=== PATIENT | female | born 1950 | race African-American/Black ===

== ENCOUNTER 2019-01-10 19:46 | Inpatient (IN) | payer MEDICARE, OTHER ==
[~2019-01-10] VITALS: Ht 160 cm; Wt 63.5 kg
[2019-01-10] MEDS ORDERED: SODIUM CHLORIDE 0.9% 1,000 ML IV ONE ×2 (20:08→23:15)
[2019-01-10 20:37] LABS: BASOPHILS % 0.3 % (0.0-2.0); EOSINOPHILS % 1.7 % (0.0-5.0); HEMATOCRIT. 35.6 % (36.0-48.0); HEMOGLOBIN. 11.7 g/dL (12.0-16.0); LYMPHOCYTES % 38.7 % (20.0-50.0); MEAN CORPUSCULAR HEMOGLOBIN 31.7 pg (28.0-32.0); MEAN CORPUSCULAR VOLUME 96.6 fL (81.0-99.0); MEAN PLATELET VOLUME 7.8 fl (7.4-10.4); NEUTROPHILS % 53.3 % (40.0-76.0); PLATELET 129 x1000/uL (130-400); RED BLOOD CELL COUNT 3.68 mill/uL (4.2-5.4); RED CELL DISTRIBUTION WIDTH 14.4 % (11.6-14.6)
[2019-01-10 20:39] LABS: CHLORIDE 114 mEq/L (98-107)
[2019-01-10 22:01] LABS: CLARITY URINE CLEAR (CLEAR); COLOR URINE YELLOW (YELLOW); KETONES URINE NEGATIVE (NEGATIVE); LEUKOCYTE ESTERASE URINE NEGATIVE (NEGATIVE); NITRITE URINE NEGATIVE (NEGATIVE); OCCULT BLOOD URINE NEGATIVE (NEGATIVE); PH URINE 5.5 (4.5-8.0); PROTEIN URINE NEGATIVE (NEGATIVE); SPECIFIC GRAVITY URINE 1.015 (1.005-1.030); UROBILINOGEN URINE 0.2 E.U./dL (0.2-1.0)
[2019-01-10] MEDS ORDERED: GUAIFENESIN 200MG/10ML SUGAR FREE UDC PO PRN (23:30)
[2019-01-10] MEDS ORDERED: LORAZEPAM 2MG/ML CPJ IV PRN (23:30)
[2019-01-10] MEDS ORDERED: HYDROMORPHONE HCL/PF 2MG/ML CPJ IV PRN (23:30)
[2019-01-10] MEDS ORDERED: HYDRALAZINE 20MG/ML VIAL IV PRN (23:30)
[2019-01-10] MEDS ORDERED: DOCUSATE SODIUM 100MG CAPSULE PO PRN (23:30)
[2019-01-10] MEDS ORDERED: CLONIDINE 0.1MG TABLET PO PRN (23:30)
[2019-01-10] MEDS ORDERED: MAGNESIUM/ALUMINUM HYDROXIDE/SIMETHICONE 30ML UDC PO PRN (23:30)
[2019-01-10] MEDS ORDERED: ONDANSETRON HCL 4MG/2ML INJ IV PRN (23:30)
[2019-01-10] MEDS ORDERED: DIPHENHYDRAMINE 50MG/ML VIAL IV PRN (23:30)
[2019-01-10] MEDS ORDERED: NA PHOS,M-B/NA PHOS,DI-BA ENEMA 118ML PR PRN (23:30)
[2019-01-10] MEDS ORDERED: IPRATROPIUM/ALBUTEROL 0.5-3(2.5)MG/3ML NEB INH PRN (23:30)
[2019-01-11] VITALS (7 sets, daily range): BP systolic 111–139; BP diastolic 52–87
[2019-01-11] MEDS ORDERED: OMEP20CA10 MT (03:05)
[2019-01-11] MEDS ORDERED: DIAZ10TA MT (03:05)
[2019-01-11] MEDS ORDERED: AMLO10TA80 MT (03:05)
[2019-01-11] MEDS ORDERED: LIP40 MT (03:05)
[2019-01-11] MEDS ORDERED: BACL-141 MT (03:05)
[2019-01-11] MEDS ORDERED: ALBU6.7H INH (03:05)
[2019-01-11] MEDS ORDERED: TRAM50TA MT (03:05)
[2019-01-11] MEDS ORDERED: DORZ10DR9 EACHEYE (03:05)
[2019-01-11] MEDS ORDERED: FURO-152 MT (03:05)
[2019-01-11] MEDS: SODIUM CHLORIDE 0.45% 1,000 ML IV SCH ×2 (05:03→21:34)
[2019-01-11] MEDS: SODIUM CHLORIDE 0.9% INJ 3ML FLUSH IVF SCH ×2 (05:06→14:20)
[2019-01-11] MEDS: HYDROCODONE/ACETAMINOPHEN 10/325MG TABLET PO PRN ×2 (05:15→11:41)
[2019-01-11 06:47] LABS: CHLORIDE 117 mEq/L (98-107)
[2019-01-11 06:58] LABS: BASOPHILS % 0.5 % (0.0-2.0); EOSINOPHILS % 1.5 % (0.0-5.0); HEMATOCRIT. 29.6 % (36.0-48.0); HEMOGLOBIN. 9.9 g/dL (12.0-16.0); LYMPHOCYTES % 37.1 % (20.0-50.0); MEAN CORPUSCULAR HEMOGLOBIN 32.2 pg (28.0-32.0); MONOCYTES % 3.4 % (2.0-8.0); NEUTROPHILS % 57.5 % (40.0-76.0); PLATELET 116 x1000/uL (130-400); RED BLOOD CELL COUNT 3.08 mill/uL (4.2-5.4); RED CELL DISTRIBUTION WIDTH 14.3 % (11.6-14.6)
[2019-01-11 07:14] LABS: CREATINE KINASE 58 IU/L (26-192); T4 FREE 1.05 ng/dL (0.76-1.46)
[2019-01-11 07:16] LABS: CREATINE KINASE MB FRACTION 5.5 ng/mL (0.5-3.6)
[2019-01-11] MEDS: ASPIRIN 81MG EC TABLET PO SCH (09:56)
[2019-01-11] MEDS: ENOXAPARIN 30MG/0.3ML SYR SUBCUT SCH (09:57)
[2019-01-11] MEDS ORDERED: REGADENOSON 0.4 MG/5 ML IV ONE (10:45)
[2019-01-11 15:46] LABS: CREATINE KINASE MB FRACTION 6.1 ng/mL (0.5-3.6)
[2019-01-11] MEDS ORDERED: LEVOFLOXACIN 500MG PREMIX 100 ML IV SCH (18:00)
[2019-01-12] VITALS (7 sets, daily range): BP systolic 122–155; BP diastolic 67–87
[2019-01-12 07:14] LABS: BASOPHILS % 0.3 % (0.0-2.0); EOSINOPHILS % 1.7 % (0.0-5.0); HEMATOCRIT. 31.4 % (36.0-48.0); HEMOGLOBIN. 10.5 g/dL (12.0-16.0); LYMPHOCYTES % 54.7 % (20.0-50.0); MEAN CORPUSCULAR HEMOGLOBIN 31.9 pg (28.0-32.0); MEAN CORPUSCULAR VOLUME 95.5 fL (81.0-99.0); MEAN PLATELET VOLUME 7.4 fl (7.4-10.4); MONOCYTES % 3.7 % (2.0-8.0); NEUTROPHILS % 39.6 % (40.0-76.0); PLATELET 121 x1000/uL (130-400); RED BLOOD CELL COUNT 3.28 mill/uL (4.2-5.4); RED CELL DISTRIBUTION WIDTH 14.3 % (11.6-14.6)
[2019-01-12] MEDS ORDERED: REGADENOSON 0.4 MG/5 ML IV ONE (08:52)
[2019-01-12] MEDS: ENOXAPARIN 30MG/0.3ML SYR SUBCUT SCH (10:31)
[2019-01-12] MEDS: ASPIRIN 81MG EC TABLET PO SCH (10:31)
[2019-01-12] MEDS ORDERED: DEXTROSE 5% WATER 1,000 ML IV SCH (12:17)
[2019-01-12] MEDS: LEVOFLOXACIN 250MG PREMIX 50 ML IV SCH (13:43)
[2019-01-12] MEDS: SODIUM CHLORIDE 0.9% INJ 3ML FLUSH IVF SCH ×2 (13:46→20:44)
[2019-01-12 14:30] LABS: CREATINE KINASE 53 IU/L (26-192)
[2019-01-12] MEDS ORDERED: VANCOMYCIN 1 G PREMIX 200 ML IV SCH (18:00)
[2019-01-12] MEDS: HYDROCODONE/ACETAMINOPHEN 10/325MG TABLET PO PRN (19:19)
[2019-01-12] MEDS: DEXTROSE 5% WATER 1,000 ML IV SCH (20:45)
[2019-01-13] MEDS: HYDROCODONE/ACETAMINOPHEN 10/325MG TABLET PO PRN ×2 (00:04→13:56)
[2019-01-13 03:45] VITALS: BP 117/65
[2019-01-13 06:16] LABS: HEMATOCRIT. 28.9 % (36.0-48.0); HEMOGLOBIN. 9.7 g/dL (12.0-16.0); MEAN CORPUSCULAR HEMOGLOBIN 31.9 pg (28.0-32.0); MEAN CORPUSCULAR VOLUME 94.7 fL (81.0-99.0); MEAN PLATELET VOLUME 7.4 fl (7.4-10.4); PLATELET 110 x1000/uL (130-400); RED BLOOD CELL COUNT 3.05 mill/uL (4.2-5.4)
[2019-01-13] MEDS: DEXTROSE 5% WATER 1,000 ML IV SCH (06:53)
[2019-01-13] MEDS: SODIUM CHLORIDE 0.9% INJ 3ML FLUSH IVF SCH ×2 (06:53→13:41)
[2019-01-13 08:08] VITALS: BP 126/72
[2019-01-13] MEDS: ASPIRIN 81MG EC TABLET PO SCH (08:42)
[2019-01-13] MEDS: ENOXAPARIN 30MG/0.3ML SYR SUBCUT SCH (08:43)
[2019-01-13 11:58] VITALS: BP 134/75
[2019-01-13] MEDS: LEVOFLOXACIN 250MG PREMIX 50 ML IV SCH (13:40)
[2019-01-13 15:07] VITALS: BP 130/85
[2019-01-13 15:27] LABS: PLATELET ESTIMATE DECREASED
[2019-01-13 15:37] VITALS: BP 130/85
[2019-01-13] MEDS ORDERED: VANCOMYCIN 500 MG PREMIX 100 ML IV SCH (18:00)
[2019-01-13] MEDS ORDERED: VANCOMYCIN 750 MG PREMIX 150 ML IV SCH (19:00)
== END 2019-01-13 17:20 | disposition home or self-care (01) | DRG 73 ==
LOC: ER 19:46 → 5WST 23:13 → EDBEDREQ 23:19 → EDBEDREQTM 23:19 → ENRESERV 01-11 00:21
PROVIDERS: ADMIT Internal Medicine; ATTEND Internal Medicine
DX: G90.8 Other disorders of autonomic nervous system (principal); N17.0 Acute kidney failure with tubular necrosis; E43 Unspecified severe protein-calorie malnutrition; E87.0 Hyperosmolality and hypernatremia; E78.5 Hyperlipidemia, unspecified; D72.819 Decreased white blood cell count, unspecified; I12.9 Hypertensive chronic kidney disease with stage 1 through stage 4 chronic kidney disease, or unspecified chronic kidney disease; N18.9 Chronic kidney disease, unspecified; J45.909 Unspecified asthma, uncomplicated; I25.2 Old myocardial infarction; Z88.0 Allergy status to penicillin
CPT/HCPCS: 36415; 71045; 76770; 78452; 80048; 80061; 82550; 82553; 82962; 83036; 83880; 84439; 84443; 84484; 85379; 93005; 93017; 93306; 93970; 96360; 96361; 99285; A9500; J1650; J1956; J2785; J3370; J7030; J7070

== ENCOUNTER 2024-02-17 14:27 | Inpatient (IN) | payer MEDICARE, MEDICAID ==
[~2024-02-17] VITALS: Ht 165.1 cm; Wt 52.2 kg
[~2024-02-17 14:27] MED LIST: ALBU6.7H15 INH; AMLO10TA80 MT; BACL-141 MT; DIAZ-570 MT; DORZ10DR9 EACHEYE; FURO-152 MT; LIP40 MT; OMEP20CA14 MT; TRAM50TA MT
[2024-02-17 15:48] LABS: BASOPHILS % 0.3 % (0.0-2.0); EOSINOPHILS % 0.1 % (0.0-5.0); HEMATOCRIT. 26.9 % (36.0-48.0); HEMOGLOBIN. 8.7 g/dL (12.0-16.0); LYMPHOCYTES % 16.6 % (20.0-50.0); MEAN CORPUSCULAR HEMOGLOBIN 27.4 pg (28.0-32.0); MEAN CORPUSCULAR HGB CONC 32.5 g/dL (31.0-37.0); MEAN CORPUSCULAR VOLUME 84.2 fL (81.0-99.0); MONOCYTES % 5.9 % (2.0-8.0); NEUTROPHILS % 77.1 % (40.0-76.0); PLATELET 188 x1000/uL (130-400); RED BLOOD CELL COUNT 3.19 mill/uL (4.2-5.4); RED CELL DISTRIBUTION WIDTH 17.3 % (11.6-14.6); WHITE BLOOD COUNT 7.8 x1000/uL (4.5-11.0)
[2024-02-17 15:58] LABS: CHLORIDE 107 mEq/L (98-107); POTASSIUM 5.3 mEq/L (3.5-5.1); SODIUM 140 mEq/L (136-145)
[2024-02-17 15:59] LABS: CALCIUM 8.8 mg/dL (8.7-10.4); CARBON DIOXIDE 22 mEq/L (21-32)
[2024-02-17 16:04] LABS: GLUCOSE 78 mg/dL (70-105); UREA NITROGEN BLOOD 71 mg/dL (9-23)
[2024-02-17 16:06] LABS: ALANINE AMINOTRANSFERASE 448 IU/L (10-49); ALBUMIN 3.8 g/dL (3.2-4.8); ASPARTATE AMINOTRANSFERASE 600 IU/L (<34); BILIRUBIN TOTAL 0.2 mg/dL (0.1-1.0); CREATININE 9.1 mg/dL (0.6-1.0); PROTEIN TOTAL 6.8 g/dL (6.0-8.3)
[2024-02-17 16:07] LABS: TROPONIN I HIGH SENSITIVITY 88 ng/L (3.0-34)
[2024-02-17] MEDS: ASPIRIN 325MG EC TABLET PO ONE (16:58)
[2024-02-17] MEDS: ENOXAPARIN 100MG/ML SYR SUBCUT NR (17:38)
[2024-02-17] MEDS ORDERED: CLONIDINE 0.1MG TABLET PO PRN (17:45)
[2024-02-17] MEDS ORDERED: ONDANSETRON HCL 4MG/2ML INJ IV PRN (17:45)
[2024-02-17] MEDS: IPRATROPIUM/ALBUTEROL 0.5-3(2.5)MG/3ML NEB HHN PRN (18:15)
[2024-02-17 18:16] VITALS: PULSE 99; RESP 40
[2024-02-17] MEDS: CALCIUM GLUCONATE 1GM PREMIX 50 ML IV NR (18:34)
[2024-02-17 18:35] VITALS: RESP 33
[2024-02-17 19:05] LABS: HEPATITIS B SURFACE ANTIGEN NEGATIVE (Negative)
[2024-02-17 19:26] LABS: HEPATITIS A AB IGM NEGATIVE (Negative); HEPATITIS B CORE AB IGM NEGATIVE (Negative)
[2024-02-17 19:43] LABS: HEPATITIS C AB REACTIVE (Pos) (Negative)
[2024-02-17 20:46] VITALS: RESP 27
[2024-02-17] MEDS ORDERED: EPOETIN ALFA-EPBX 4,000 UNIT/ML VIAL SUBCUT SCH (21:00)
[2024-02-17] MEDS ORDERED: DOXYCYCLINE 100MG/100ML 100 ML IV SCH (21:00)
[2024-02-17] MEDS ORDERED: NALOXONE HCL 0.4MG/ML VIAL IV PRN (21:15)
[2024-02-17 22:00] LABS: BG BASE EXCESS -6.2 mmol/L (-2.0-2.0); BG CARBOXYHEMOGLOBIN 0.1 % (0.5-1.5); BG DEOXYHEMOGLOBIN 5.4 % (0.0-5.0); BG FRACTION INSPIRED OXYGEN 100; BG HCO3 ACT 19.3 mmol/L (22.0-26.0); BG METHEMOGLOBIN 0.1 % (0.0-1.5); BG OXYGEN SATURATION 94.6 % (92.0-98.5); BG OXYHEMOGLOBIN 94.4 % (94.0-97.0); BG PCO2 38.5 mmHg (35.0-45.0); BG PH 7.319 (7.350-7.450); BG PO2 91.1 mmHg (75.0-100.0); BG SAMPLE SITE RIGHT RADIAL; BG TOTAL HEMOGLOBIN 9.1 g/dL (12.0-18.0); BG VENT MODE MASK - BIPAP
[2024-02-17] MEDS: FUROSEMIDE 40MG/4ML VIAL IVP NR (22:41)
[2024-02-17] MEDS: EPOETIN ALFA 4000UNITS/ML VIAL SUBCUT SCH (22:42)
[2024-02-18] VITALS (28 sets, daily range): BP systolic 114–144; BP diastolic 60–103; PULSE 83–102; RESP 19–50; TEMP 97.5–98
[2024-02-18 01:50] LABS: CREATINE KINASE MB FRACTION 5.5 ng/mL (0.5-3.6)
[2024-02-18 05:29] LABS: BASOPHILS % 0.3 % (0.0-2.0); EOSINOPHILS % 0.2 % (0.0-5.0); HEMATOCRIT. 27.3 % (36.0-48.0); HEMOGLOBIN. 8.7 g/dL (12.0-16.0); LYMPHOCYTES % 16.2 % (20.0-50.0); MEAN CORPUSCULAR HEMOGLOBIN 27.2 pg (28.0-32.0); MEAN CORPUSCULAR VOLUME 84.9 fL (81.0-99.0); MEAN PLATELET VOLUME 8.5 fl (7.4-10.4); MONOCYTES % 6.5 % (2.0-8.0); NEUTROPHILS % 76.8 % (40.0-76.0); PLATELET 172 x1000/uL (130-400); RED BLOOD CELL COUNT 3.21 mill/uL (4.2-5.4); RED CELL DISTRIBUTION WIDTH 17.5 % (11.6-14.6); WHITE BLOOD COUNT 8.9 x1000/uL (4.5-11.0)
[2024-02-18 05:52] LABS: POTASSIUM 5.8 mEq/L (3.5-5.1)
[2024-02-18 05:53] LABS: CALCIUM 8.2 mg/dL (8.7-10.4)
[2024-02-18 05:56] LABS: CREATINE KINASE MB FRACTION 4.2 ng/mL (0.5-3.6)
[2024-02-18 06:17] LABS: CREATININE 9.7 mg/dL (0.6-1.0)
[2024-02-18] MEDS: ASPIRIN 81MG EC TABLET PO SCH (08:41)
[2024-02-18] MEDS: ENOXAPARIN 30MG/0.3ML SYR SUBCUT SCH (08:42)
[2024-02-18] MEDS ORDERED: ACETAMINOPHEN 325MG TABLET PO PRN (10:30)
[2024-02-18] MEDS ORDERED: DOCUSATE SODIUM 100MG CAPSULE PO PRN (10:30)
[2024-02-18] MEDS: SODIUM POLYSTYRENE SULFONATE 15 G/60 ML BOT PO NR ×2 (11:22→17:00)
[2024-02-18] MEDS: DOXYCYCLINE 100MG/100ML 100 ML IV SCH (12:00)
[2024-02-18] MEDS: NITROGLYCERIN OINT 1GM/INCH UDPKT TD SCH (14:27)
[2024-02-18] MEDS: HYDRALAZINE HCL 25MG TABLET PO SCH (14:27)
[2024-02-18] MEDS: IPRATROPIUM/ALBUTEROL 0.5-3(2.5)MG/3ML NEB HHN SCH (16:30)
[2024-02-18 17:19] LABS: D-DIMER 3.64 mg/L FEU (<0.50); INR 1.1; PROTHROMBIN TIME 12.6 sec (9.6-11.0)
[2024-02-18 17:33] LABS: CREATINE KINASE MB FRACTION 3.6 ng/mL (0.5-3.6)
[2024-02-19] VITALS (29 sets, daily range): BP systolic 118–154; BP diastolic 20–94; PULSE 94–107; RESP 17–39; TEMP 97–98.6
[2024-02-19] LABS: CREATINE KINASE MB FRACTION 2.9 ng/mL (0.5-3.6)
[2024-02-19] MEDS: HYDROCODONE/ACETAMINOPHEN 5/325MG TABLET PO PRN (03:19)
[2024-02-19 07:14] LABS: BASOPHILS % 0.2 % (0.0-2.0); EOSINOPHILS % 0.1 % (0.0-5.0); HEMATOCRIT. 25.5 % (36.0-48.0); HEMOGLOBIN. 8.2 g/dL (12.0-16.0); LYMPHOCYTES % 8.1 % (20.0-50.0); MEAN CORPUSCULAR HEMOGLOBIN 26.4 pg (28.0-32.0); MEAN CORPUSCULAR HGB CONC 32.1 g/dL (31.0-37.0); MEAN CORPUSCULAR VOLUME 82.2 fL (81.0-99.0); MEAN PLATELET VOLUME 8.3 fl (7.4-10.4); MONOCYTES % 5.8 % (2.0-8.0); NEUTROPHILS % 85.8 % (40.0-76.0); PLATELET 177 x1000/uL (130-400); RED BLOOD CELL COUNT 3.11 mill/uL (4.2-5.4); RED CELL DISTRIBUTION WIDTH 17.2 % (11.6-14.6); WHITE BLOOD COUNT 11.7 x1000/uL (4.5-11.0)
[2024-02-19 07:31] LABS: CHLORIDE 105 mEq/L (98-107); POTASSIUM 3.6 mEq/L (3.5-5.1); SODIUM 141 mEq/L (136-145)
[2024-02-19 07:33] LABS: CARBON DIOXIDE 22 mEq/L (21-32)
[2024-02-19 07:38] LABS: GLUCOSE 103 mg/dL (70-105)
[2024-02-19 07:39] LABS: UREA NITROGEN BLOOD 89 mg/dL (9-23)
[2024-02-19 07:40] LABS: ALANINE AMINOTRANSFERASE 424 IU/L (10-49); ALBUMIN 3.6 g/dL (3.2-4.8); ASPARTATE AMINOTRANSFERASE 288 IU/L (<34)
[2024-02-19 07:41] LABS: BILIRUBIN TOTAL 0.2 mg/dL (0.1-1.0); PROTEIN TOTAL 6.5 g/dL (6.0-8.3)
[2024-02-19 07:45] LABS: BILIRUBIN DIRECT < 0.1 mg/dL (<=3.0); CREATININE 9.7 mg/dL (0.6-1.0)
[2024-02-19] MEDS: FUROSEMIDE 40MG/4ML VIAL IVP SCH (09:00)
[2024-02-19] MEDS: PANTOPRAZOLE SODIUM 40 MG/VIAL IV SCH (09:00)
[2024-02-19] MEDS ORDERED: LIDOCAINE HCL 1% 10 MG/ML 10ML VIAL ONE (10:18)
[2024-02-19] MEDS ORDERED: HEPARIN 1000 UNITS/ML 10ML ONE (10:18)
[2024-02-19 17:26] LABS: BG BASE EXCESS 0.7 mmol/L (-2.0-2.0); BG CARBOXYHEMOGLOBIN 0.2 % (0.5-1.5); BG DEOXYHEMOGLOBIN 1.3 % (0.0-5.0); BG HCO3 ACT 24.7 mmol/L (22.0-26.0); BG METHEMOGLOBIN 0.3 % (0.0-1.5); BG OXYGEN SATURATION 98.7 % (92.0-98.5); BG OXYHEMOGLOBIN 98.2 % (94.0-97.0); BG PCO2 37.2 mmHg (35.0-45.0); BG PO2 148.3 mmHg (75.0-100.0); BG TOTAL HEMOGLOBIN 10.2 g/dL (12.0-18.0)
[2024-02-19 17:28] LABS: BG FRACTION INSPIRED OXYGEN 60; BG SAMPLE SITE RIGHT RADIAL; BG TOTAL RESPIRATORY RATE 23 b/min; BG VENT MODE MASK - BIPAP
[2024-02-19 22:34] LABS: CLARITY URINE CLEAR (CLEAR); COLOR URINE YELLOW (YELLOW); GLUCOSE URINE NEGATIVE (NEGATIVE); KETONES URINE NEGATIVE (NEGATIVE); LEUKOCYTE ESTERASE URINE TRACE (NEGATIVE); NITRITE URINE NEGATIVE (NEGATIVE); OCCULT BLOOD URINE NEGATIVE (NEGATIVE); PH URINE 5.5 (4.5-8.0); PROTEIN URINE 3+ (NEGATIVE); SPECIFIC GRAVITY URINE 1.016 (1.005-1.030); UROBILINOGEN URINE 0.2 E.U./dL (0.2-1.0)
[2024-02-19 22:42] LABS: *AMPHETAMINES SCREEN URINE NEGATIVE (NEGATIVE); *BARBITURATES SCREEN URINE NEGATIVE (NEGATIVE); *BENZODIAZEPINES SCREEN URINE PRESUMPTIVE POSITIVE (NEGATIVE); *COCAINE SCREEN URINE NEGATIVE (NEGATIVE); CANNABINOID URINE SCREEN NEGATIVE (NEGATIVE); ECSTASY MDMA SCREEN URINE NEGATIVE (NEGATIVE); METHADONE URINE SCREEN NEGATIVE (NEGATIVE); OPIATES URINE SCREEN PRESUMPTIVE POSITIVE (NEGATIVE); PHENCYCLIDINE URINE SCREEN NEGATIVE (NEGATIVE)
[2024-02-19 23:00] LABS: RBC URINE NONE SEEN /hpf (0-2); SQUAMOUS EPITHELIAL CELL URINE 1+ /lpf (RARE/1+); WBC URINE 0-2 /hpf (0-2)
[2024-02-19 23:02] LABS: BACTERIA URINE TRACE
[2024-02-20] VITALS (24 sets, daily range): BP systolic 106–140; BP diastolic 52–75; PULSE 75–98; RESP 13–25; TEMP 97.1–99.4; O2SAT 99
[2024-02-20 07:23] LABS: BASOPHILS % 0.2 % (0.0-2.0); EOSINOPHILS % 1.3 % (0.0-5.0); HEMATOCRIT. 22.8 % (36.0-48.0); HEMOGLOBIN. 7.4 g/dL (12.0-16.0); MEAN CORPUSCULAR HEMOGLOBIN 26.5 pg (28.0-32.0); MEAN CORPUSCULAR HGB CONC 32.2 g/dL (31.0-37.0); MEAN CORPUSCULAR VOLUME 82.1 fL (81.0-99.0); MEAN PLATELET VOLUME 8.1 fl (7.4-10.4); MONOCYTES % 8.2 % (2.0-8.0); NEUTROPHILS % 73.3 % (40.0-76.0); PLATELET 192 x1000/uL (130-400); RED BLOOD CELL COUNT 2.78 mill/uL (4.2-5.4); RED CELL DISTRIBUTION WIDTH 17.4 % (11.6-14.6); WHITE BLOOD COUNT 7.2 x1000/uL (4.5-11.0)
[2024-02-20 07:46] LABS: CALCIUM 8.2 mg/dL (8.7-10.4)
[2024-02-20 07:54] LABS: CREATININE 7.3 mg/dL (0.6-1.0)
[2024-02-20] MEDS ORDERED: LEVOFLOXACIN 500MG PREMIX 100 ML IV SCH (09:00)
[2024-02-20 15:39] LABS: BG CARBOXYHEMOGLOBIN 0.7 % (0.5-1.5); BG DEOXYHEMOGLOBIN 9.8 % (0.0-5.0); BG FRACTION INSPIRED OXYGEN 21; BG HCO3 ACT 24.6 mmol/L (22.0-26.0); BG METHEMOGLOBIN 0.5 % (0.0-1.5); BG OXYGEN SATURATION 90.1 % (92.0-98.5); BG PCO2 39.8 mmHg (35.0-45.0); BG PH 7.409 (7.350-7.450); BG PO2 63.8 mmHg (75.0-100.0); BG SAMPLE SITE LEFT BRACHIAL; BG TOTAL HEMOGLOBIN 8.3 g/dL (12.0-18.0); BG VENT MODE ROOM AIR
[2024-02-20] MEDS: ACETAMINOPHEN 325MG TABLET PO PRN (22:14)
[2024-02-21] VITALS (29 sets, daily range): BP systolic 112–138; BP diastolic 54–79; PULSE 82–102; RESP 15–28; TEMP 97.1–98.4; O2SAT 99–100
[2024-02-21] MEDS ORDERED: ALTEPLASE 2MG/VIAL ITC NR (07:00)
[2024-02-21] MEDS ORDERED: LIDOCAINE HCL 1% 10 MG/ML 10ML VIAL ONE (07:48)
[2024-02-21] MEDS ORDERED: IOHEXOL-300 100 ML BOTTLE ONE (07:49)
[2024-02-21] MEDS ORDERED: HEPARIN 1000 UNITS/ML 10ML ONE (07:49)
[2024-02-21] MEDS: FENTANYL CITRATE/PF 50MCG/ML 2ML VIAL IV NR (09:10)
[2024-02-21] MEDS ORDERED: FENTANYL CITRATE/PF 50MCG/ML 2ML VIAL ONE (09:10)
[2024-02-21 17:19] LABS: HEMATOCRIT. 24.5 % (36.0-48.0); HEMOGLOBIN. 8.1 g/dL (12.0-16.0); MEAN CORPUSCULAR HEMOGLOBIN 27.1 pg (28.0-32.0); MEAN CORPUSCULAR VOLUME 82.3 fL (81.0-99.0); MEAN PLATELET VOLUME 7.7 fl (7.4-10.4); PLATELET 222 x1000/uL (130-400); RED BLOOD CELL COUNT 2.98 mill/uL (4.2-5.4); WHITE BLOOD COUNT 5.4 x1000/uL (4.5-11.0)
[2024-02-21 17:31] LABS: DIFFERENTIAL COMMENT 1
[2024-02-21 21:58] LABS: ANISOCYTOSIS 1+; PLATELET ESTIMATE NORMAL
[2024-02-22] VITALS (21 sets, daily range): BP systolic 113–147; BP diastolic 68–86; PULSE 86–104; RESP 13–29; TEMP 97.1–98.8; O2SAT 96–99
[2024-02-22 11:01] LABS: HEMATOCRIT. 21.8 % (36.0-48.0); HEMOGLOBIN. 7.1 g/dL (12.0-16.0); MEAN CORPUSCULAR HEMOGLOBIN 26.7 pg (28.0-32.0); MEAN CORPUSCULAR HGB CONC 32.7 g/dL (31.0-37.0); MEAN CORPUSCULAR VOLUME 81.8 fL (81.0-99.0); PLATELET 214 x1000/uL (130-400); RED BLOOD CELL COUNT 2.67 mill/uL (4.2-5.4); RED CELL DISTRIBUTION WIDTH 17.2 % (11.6-14.6); WHITE BLOOD COUNT 4.4 x1000/uL (4.5-11.0)
[2024-02-22 11:10] LABS: POTASSIUM 3.2 mEq/L (3.5-5.1)
[2024-02-22 11:11] LABS: CALCIUM 8.5 mg/dL (8.7-10.4)
[2024-02-22 11:23] LABS: CREATININE 7.2 mg/dL (0.6-1.0)
[2024-02-22 11:34] LABS: DIFFERENTIAL COMMENT 1
[2024-02-22] MEDS: POTASSIUM CHLORIDE 20MEQ TABLET SR PO NR (12:58)
[2024-02-22 16:57] LABS: PLATELET ESTIMATE NORMAL
[2024-02-23] VITALS (9 sets, daily range): BP systolic 126–140; BP diastolic 59–72; PULSE 76–99; RESP 15–20; TEMP 97–97.5; O2SAT 96–100
[2024-02-23 05:11] LABS: POTASSIUM 3.8 mEq/L (3.5-5.1)
[2024-02-23 05:12] LABS: CALCIUM 8.8 mg/dL (8.7-10.4)
[2024-02-23 05:18] LABS: CREATININE 5.4 mg/dL (0.6-1.0)
[2024-02-23 05:31] LABS: HEMATOCRIT. 27.2 % (36.0-48.0); HEMOGLOBIN. 8.8 g/dL (12.0-16.0); MEAN CORPUSCULAR HEMOGLOBIN 27.4 pg (28.0-32.0); MEAN CORPUSCULAR HGB CONC 32.4 g/dL (31.0-37.0); MEAN CORPUSCULAR VOLUME 84.4 fL (81.0-99.0); MEAN PLATELET VOLUME 7.4 fl (7.4-10.4); PLATELET 205 x1000/uL (130-400); RED BLOOD CELL COUNT 3.22 mill/uL (4.2-5.4); RED CELL DISTRIBUTION WIDTH 16.4 % (11.6-14.6)
[2024-02-23 06:38] LABS: DIFFERENTIAL COMMENT 1
[2024-02-23 22:46] LABS: PLATELET ESTIMATE NORMAL
== END 2024-02-23 16:10 | disposition home health service (06) | DRG 252 ==
LOC: ER 14:56 → EDBEDREQTM 16:19 → EDBEDREQ 16:19 → 5EST 18:47 → EDBEDREQTM 18:52 → EDBEDREQSVC 18:52 → 7EST 02-22 18:02
PROVIDERS: ADMIT Internal Medicine; ATTEND Internal Medicine
PROC: 5A1D70Z Performance of Urinary Filtration, Intermittent, Less than 6 Hours Per Day (ICD-10-PCS; 2024-02-18)
PROC: 5A09357 Assistance with Respiratory Ventilation, Less than 24 Consecutive Hours, Continuous Positive Airway Pressure (ICD-10-PCS; 2024-02-18)
PROC: 5A1D70Z Performance of Urinary Filtration, Intermittent, Less than 6 Hours Per Day (ICD-10-PCS; 2024-02-19)
PROC: 5A09357 Assistance with Respiratory Ventilation, Less than 24 Consecutive Hours, Continuous Positive Airway Pressure (ICD-10-PCS; 2024-02-19)
PROC: 05HY33Z Insertion of Infusion Device into Upper Vein, Percutaneous Approach (ICD-10-PCS; 2024-02-19)
PROC: B54MZZA Ultrasonography of Right Upper Extremity Veins, Guidance (ICD-10-PCS; 2024-02-19)
PROC: 5A1D70Z Performance of Urinary Filtration, Intermittent, Less than 6 Hours Per Day (ICD-10-PCS; 2024-02-20)
PROC: 5A09357 Assistance with Respiratory Ventilation, Less than 24 Consecutive Hours, Continuous Positive Airway Pressure (ICD-10-PCS; 2024-02-20)
PROC: 03783ZZ Dilation of Left Brachial Artery, Percutaneous Approach (ICD-10-PCS; principal; 2024-02-21)
PROC: B31J1ZZ Fluoroscopy of Left Upper Extremity Arteries using Low Osmolar Contrast (ICD-10-PCS; 2024-02-21)
PROC: B5181ZZ Fluoroscopy of Superior Vena Cava using Low Osmolar Contrast (ICD-10-PCS; 2024-02-21)
PROC: 3E03317 Introduction of Other Thrombolytic into Peripheral Vein, Percutaneous Approach (ICD-10-PCS; 2024-02-21)
PROC: 5A1D70Z Performance of Urinary Filtration, Intermittent, Less than 6 Hours Per Day (ICD-10-PCS; 2024-02-22)
DX: I13.2 Hypertensive heart and chronic kidney disease with heart failure and with stage 5 chronic kidney disease, or end stage renal disease (principal); J96.01 Acute respiratory failure with hypoxia; N18.6 End stage renal disease; J84.9 Interstitial pulmonary disease, unspecified; I50.9 Heart failure, unspecified; E87.5 Hyperkalemia; Z20.822 Contact with and (suspected) exposure to COVID-19; D64.9 Anemia, unspecified; I25.10 Atherosclerotic heart disease of native coronary artery without angina pectoris; J44.89 Other specified chronic obstructive pulmonary disease; Z88.0 Allergy status to penicillin; Z88.2 Allergy status to sulfonamides; Z99.2 Dependence on renal dialysis
CPT/HCPCS: 36415; 36556; 36600; 36905; 71045; 76700; 76937; 78580; 80048; 80053; 80076; 80305; 81003; 82375; 82550; 82553; 82805; 83880; 84484; 85025; 85379; 86705; 86709; 86850; 86900; 86920; 87340; 87426; 90935; 93005; 93970; 94640; 94660; 97161; 99152; 99153; 99291; C1725; C1752; C1766; C1769; C9113; J0610; J0885; J1644; J1650; J1940; J2405; J2997; J3010; J3490; P9016; Q9967; G0500

== ENCOUNTER 2024-03-25 06:22 | Emergency (ER) | payer MEDICARE, MEDICAID ==
[~2024-03-25] VITALS: Ht 170.2 cm; Wt 62.0 kg
[~2024-03-25 06:22] MED LIST changes: -ALBU6.7H15 INH; -AMLO10TA80 MT; +AMLO2.5T45 PO; +ASPI-1406 PO; -BACL-141 MT; +BACL-141 PO; +CALC667C PO; +CARV12.545 PO; +CRES10 PO; -DIAZ-570 MT; +DIAZ10TA4 PO; +DICL100G58 TP; -DORZ10DR9 EACHEYE; +ERGO1250 PO; +FAMO20TA8 PO; +FOLI-43 PO; +FOLI0.8T23 PO; -FURO-152 MT; +FURO20TA4 PO; +LATA2.5D14 EACHEYE; +LEVO125T8 PO; -LIP40 MT; -OMEP20CA14 MT; +T3 PO; +TAPI60CR TP; -TRAM50TA MT
[2024-03-25 06:33] VITALS: O2SAT 98
[2024-03-25 07:27] LABS: EOSINOPHILS % 1.8 % (0.0-5.0); HEMATOCRIT. 35.3 % (36.0-48.0); LYMPHOCYTES % 43.1 % (20.0-50.0); MEAN CORPUSCULAR HEMOGLOBIN 27.6 pg (28.0-32.0); MEAN CORPUSCULAR HGB CONC 31.1 g/dL (31.0-37.0); MEAN CORPUSCULAR VOLUME 88.9 fL (81.0-99.0); MEAN PLATELET VOLUME 8.6 fl (7.4-10.4); NEUTROPHILS % 47.1 % (40.0-76.0); PLATELET 143 x1000/uL (130-400); RED BLOOD CELL COUNT 3.97 mill/uL (4.2-5.4); RED CELL DISTRIBUTION WIDTH 23.3 % (11.6-14.6); WHITE BLOOD COUNT 4.4 x1000/uL (4.5-11.0)
[2024-03-25 07:30] LABS: POTASSIUM 4.2 mEq/L (3.5-5.1)
[2024-03-25 07:37] LABS: ADD RBC MORPHOLOGY YES; DIFFERENTIAL COMMENT 1
[2024-03-25 07:44] LABS: CREATININE 6.5 mg/dL (0.6-1.0)
[2024-03-25 07:46] VITALS: BP 143/69; PULSE 79; RESP 19; TEMP 98.6
[2024-03-25 08:21] LABS: PROTHROMBIN TIME 11.3 sec (9.6-11.0)
[2024-03-25 10:28] LABS: ANISOCYTOSIS 3+; PLATELET ESTIMATE NORMAL
== END 2024-03-25 10:55 | disposition left against medical advice (07) ==
LOC: ER 06:35 → EDBEDREQTM 08:15 → EDBEDREQ 08:15 → EDBEDREQSVC 08:15 → CANBEDREQ 10:54 → ER 10:55
DX: R53.1 Weakness (principal); I13.0 Hypertensive heart and chronic kidney disease with heart failure and stage 1 through stage 4 chronic kidney disease, or unspecified chronic kidney disease; I50.9 Heart failure, unspecified; J44.9 Chronic obstructive pulmonary disease, unspecified; R51.9 Headache, unspecified; Z99.2 Dependence on renal dialysis; Z98.890 Other specified postprocedural states; Z88.0 Allergy status to penicillin; Z88.2 Allergy status to sulfonamides; Z88.6 Allergy status to analgesic agent
CPT/HCPCS: 36415; 80048; 85025; 99284

== ENCOUNTER 2024-06-13 15:40 | Inpatient (IN) | payer MEDICARE, MEDICAID ==
[2024-06-12] MEDS: INSULIN REGULAR (HUMULIN R) 1000UNITS/10ML VIAL IV STA (20:00)
[2024-06-12] MEDS: DEXTROSE 50% WATER 50ML SYRINGE IV ONE (20:00)
[~2024-06-13] VITALS: Ht 162.6 cm; Wt 48.3 kg
[2024-06-13 15:41] VITALS: RESP 32
[2024-06-13 16:18] LABS: BG BASE EXCESS -4.1 mmol/L (-2.0-3.0); BG CARBOXYHEMOGLOBIN 0.8 % (0.5-1.5); BG DEOXYHEMOGLOBIN 0.6 % (0.0-5.0); BG FRACTION INSPIRED OXYGEN 100; BG HCO3 ACT 23.4 mmol/L (21.0-28.0); BG METHEMOGLOBIN 0.1 % (0.5-1.5); BG OXYGEN SATURATION 99.4 % (94.0-98.0); BG OXYHEMOGLOBIN 98.5 % (94.0-98.0); BG PCO2 54.5 mmHg (32.0-45.0); BG PH 7.251 (7.350-7.450); BG PO2 178.2 mmHg (83.0-108.0); BG SAMPLE SITE RIGHT RADIAL; BG TOTAL HEMOGLOBIN 10.9 g/dL (12.0-16.0); BG VENT MODE MASK - BIPAP
[2024-06-13 16:35] LABS: HEMATOCRIT. 36.3 % (36.0-48.0); HEMOGLOBIN. 10.4 g/dL (12.0-16.0); MEAN CORPUSCULAR HEMOGLOBIN 26.9 pg (28.0-32.0); MEAN CORPUSCULAR HGB CONC 28.8 g/dL (31.0-37.0); MEAN CORPUSCULAR VOLUME 93.4 fL (81.0-99.0); MEAN PLATELET VOLUME 7.9 fl (7.4-10.4); PLATELET 226 x1000/uL (130-400); RED BLOOD CELL COUNT 3.88 mill/uL (4.2-5.4); RED CELL DISTRIBUTION WIDTH 19.6 % (11.6-14.6); WHITE BLOOD COUNT 11.5 x1000/uL (4.5-11.0)
[2024-06-13 16:36] LABS: DIFFERENTIAL COMMENT 1
[2024-06-13] MEDS: FUROSEMIDE 40MG/4ML VIAL IV ONE (16:40)
[2024-06-13] MEDS: HYDRALAZINE 20MG/ML VIAL IV ONE (16:40)
[2024-06-13] MEDS: NITROGLYCERIN OINT 1GM/INCH UDPKT TD ONE (16:40)
[2024-06-13] MEDS: MORPHINE SULFATE 2 MG/ML INJ (NOT FOR IM USE) IV ONE (16:40)
[2024-06-13] MEDS: ASPIRIN 81MG TABLET PO ONE (16:40)
[2024-06-13 16:41] LABS: CHLORIDE 113 mEq/L (98-107); POTASSIUM 5.6 mEq/L (3.5-5.1); SODIUM 141 mEq/L (136-145)
[2024-06-13] MEDS: METOCLOPRAMIDE HCL 10MG/2ML VIAL IV ONE (16:41)
[2024-06-13 16:42] LABS: CARBON DIOXIDE 21 mEq/L (21-32)
[2024-06-13 16:43] LABS: CALCIUM 9.4 mg/dL (8.7-10.4)
[2024-06-13 16:47] LABS: GLUCOSE 131 mg/dL (70-105); UREA NITROGEN BLOOD 42 mg/dL (9-23)
[2024-06-13 16:51] LABS: CREATININE 6.4 mg/dL (0.6-1.0); TROPONIN I HIGH SENSITIVITY 61 ng/L (3.0-34)
[2024-06-13 17:13] LABS: ANISOCYTOSIS 1+; PLATELET ESTIMATE NORMAL
[2024-06-13] MEDS: CALCIUM CHLORIDE 1GM/10ML SYR IV ONE (18:23)
[2024-06-13 18:29] VITALS: RESP 34
[2024-06-13 19:23] VITALS: RESP 26
[2024-06-13 20:50] LABS: TROPONIN I HIGH SENSITIVITY 88 ng/L (3.0-34)
[2024-06-13 22:02] LABS: CLARITY URINE CLEAR (CLEAR); COLOR URINE YELLOW (YELLOW); GLUCOSE URINE NEGATIVE (NEGATIVE); KETONES URINE NEGATIVE (NEGATIVE); LEUKOCYTE ESTERASE URINE TRACE (NEGATIVE); NITRITE URINE NEGATIVE (NEGATIVE); OCCULT BLOOD URINE NEGATIVE (NEGATIVE); PROTEIN URINE 2+ (NEGATIVE); SPECIFIC GRAVITY URINE 1.011 (1.005-1.030); UROBILINOGEN URINE 0.2 E.U./dL (0.2-1.0)
[2024-06-13 22:12] LABS: *AMPHETAMINES SCREEN URINE NEGATIVE (NEGATIVE); *BARBITURATES SCREEN URINE NEGATIVE (NEGATIVE); *BENZODIAZEPINES SCREEN URINE PRESUMPTIVE POSITIVE (NEGATIVE); *COCAINE SCREEN URINE NEGATIVE (NEGATIVE); CANNABINOID URINE SCREEN NEGATIVE (NEGATIVE); ECSTASY MDMA SCREEN URINE NEGATIVE (NEGATIVE); METHADONE URINE SCREEN NEGATIVE (NEGATIVE); OPIATES URINE SCREEN PRESUMPTIVE POSITIVE (NEGATIVE); PHENCYCLIDINE URINE SCREEN NEGATIVE (NEGATIVE)
[2024-06-13 22:31] LABS: BACTERIA URINE NONE SEEN; RBC URINE NONE SEEN /hpf (0-2); SQUAMOUS EPITHELIAL CELL URINE FEW /lpf (RARE/1+)
[2024-06-13 23:12] VITALS: RESP 22
[2024-06-14] VITALS (19 sets, daily range): BP systolic 116–145; BP diastolic 67–83; PULSE 6–104; RESP 18–39; TEMP 37.05852–37.28076; O2SAT 93–100
[2024-06-14] MEDS: MORPHINE SULFATE 2 MG/ML INJ (NOT FOR IM USE) IV NR (04:30)
[2024-06-14 14:24] LABS: HEPATITIS B SURFACE ANTIGEN NEGATIVE (Negative)
[2024-06-14 14:45] LABS: HEPATITIS A AB IGM NEGATIVE (Negative); HEPATITIS B CORE AB IGM NEGATIVE (Negative)
[2024-06-14 14:46] LABS: HEPATITIS C AB REACTIVE (Pos) (Negative)
[2024-06-14] MEDS ORDERED: CARVEDILOL 12.5MG TABLET PO SCH (18:30)
[2024-06-14] MEDS ORDERED: AMLODIPINE 2.5MG TABLET PO SCH (18:30)
[2024-06-14] MEDS: AMLODIPINE 2.5MG TABLET PO SCH (18:30)
[2024-06-14] MEDS ORDERED: LEVOTHYROXINE SODIUM 125MCG TABLET PO SCH (18:30)
[2024-06-14] MEDS: FUROSEMIDE 20MG TABLET PO SCH (18:30)
[2024-06-14] MEDS: ASPIRIN 81MG TABLET PO SCH (19:10)
[2024-06-14] MEDS: FOLIC ACID 1MG TABLET PO SCH (19:10)
[2024-06-14] MEDS: FOLIC ACID/VITAMIN B COMP W-C TABLET PO SCH (19:10)
[2024-06-14] MEDS: LEVOTHYROXINE SODIUM 125MCG TABLET PO SCH (19:11)
[2024-06-14] MEDS ORDERED: LATANOPROST 0.005% OPHTH DROPS 2.5ML EACHEYE SCH (21:00)
[2024-06-14] MEDS: LATANOPROST 0.005% OPHTH DROPS 2.5ML BOTHEYE SCH (23:14)
[2024-06-14] MEDS: ACETAMINOPHEN 325MG TABLET PO PRN (23:43)
[2024-06-14] MEDS: CARVEDILOL 12.5MG TABLET PO SCH (23:43)
[2024-06-14] MEDS: CEFTRIAXONE 1GM/50ML 50 ML IV SCH (23:55)
[2024-06-15] VITALS (21 sets, daily range): BP systolic 100–151; BP diastolic 52–86; PULSE 71–101; RESP 15–41; TEMP 36.33624–37.11408; O2SAT 95–100
[2024-06-15] MEDS: CALCIUM ACETATE 667MG CAPSULE PO SCH (08:00)
[2024-06-15] MEDS ORDERED: ASPIRIN 81MG EC TABLET PO SCH (09:00)
[2024-06-15] MEDS ORDERED: FUROSEMIDE 20MG TABLET PO SCH (09:00)
[2024-06-15 14:05] LABS: HEMATOCRIT. 24.7 % (36.0-48.0); HEMOGLOBIN. 7.8 g/dL (12.0-16.0); MEAN CORPUSCULAR HEMOGLOBIN 26.4 pg (28.0-32.0); MEAN CORPUSCULAR HGB CONC 31.5 g/dL (31.0-37.0); MEAN CORPUSCULAR VOLUME 83.6 fL (81.0-99.0); MEAN PLATELET VOLUME 7.7 fl (7.4-10.4); PLATELET 173 x1000/uL (130-400); RED BLOOD CELL COUNT 2.95 mill/uL (4.2-5.4); RED CELL DISTRIBUTION WIDTH 19.5 % (11.6-14.6)
[2024-06-15 14:13] LABS: DIFFERENTIAL COMMENT 1
[2024-06-15 14:16] LABS: POTASSIUM 4.6 mEq/L (3.5-5.1)
[2024-06-15 14:17] LABS: CALCIUM 8.2 mg/dL (8.7-10.4)
[2024-06-15 14:36] LABS: CREATININE 4.4 mg/dL (0.6-1.0)
[2024-06-15 14:38] LABS: ANISOCYTOSIS 1+; PLATELET ESTIMATE NORMAL
[2024-06-15 16:20] LABS: BG CARBOXYHEMOGLOBIN 1.1 % (0.5-1.5); BG DEOXYHEMOGLOBIN 5.5 % (0.0-5.0); BG FRACTION INSPIRED OXYGEN 21; BG HCO3 ACT 27.2 mmol/L (21.0-28.0); BG METHEMOGLOBIN 0.3 % (0.5-1.5); BG OXYGEN SATURATION 94.4 % (94.0-98.0); BG OXYHEMOGLOBIN 93.1 % (94.0-98.0); BG PCO2 35.8 mmHg (32.0-45.0); BG PH 7.499 (7.350-7.450); BG PO2 66.4 mmHg (83.0-108.0); BG SAMPLE SITE RIGHT BRACHIAL; BG TOTAL HEMOGLOBIN 10.5 g/dL (12.0-16.0); BG VENT MODE ROOM AIR
[2024-06-15 17:19] LABS: TROPONIN I HIGH SENSITIVITY 41 ng/L (3.0-34)
[2024-06-16] VITALS (10 sets, daily range): BP systolic 96–143; BP diastolic 53–88; PULSE 75–94; RESP 20–34; TEMP 36.3918–36.9474; O2SAT 95–100
[2024-06-16 13:11] LABS: HEMATOCRIT 28.6 % (36.0-48.0); HEMOGLOBIN 8.8 g/dL (12.0-16.0); MEAN CORPUSCULAR HEMOGLOBIN 25.7 pg (28.0-32.0); MEAN CORPUSCULAR HGB CONC 30.7 g/dL (31.0-37.0); MEAN CORPUSCULAR VOLUME 83.6 fL (81.0-99.0); PLATELET 217 x1000/uL (130-400); RED BLOOD CELL COUNT 3.42 mill/uL (4.2-5.4); RED CELL DISTRIBUTION WIDTH 19.6 % (11.6-14.6); WHITE BLOOD COUNT 4.8 x1000/uL (4.5-11.0)
[2024-06-16 13:21] LABS: POTASSIUM 4.7 mEq/L (3.5-5.1)
[2024-06-16 13:32] LABS: CREATININE 5.4 mg/dL (0.6-1.0)
== END 2024-06-16 20:11 | disposition home or self-care (01) | DRG 291 ==
LOC: ER 15:40 → 5EST 06-14 16:14
PROVIDERS: ADMIT Internal Medicine; ATTEND Internal Medicine
PROC: 5A09357 Assistance with Respiratory Ventilation, Less than 24 Consecutive Hours, Continuous Positive Airway Pressure (ICD-10-PCS; 2024-06-13)
PROC: 5A1D70Z Performance of Urinary Filtration, Intermittent, Less than 6 Hours Per Day (ICD-10-PCS; principal; 2024-06-14)
PROC: 5A1D70Z Performance of Urinary Filtration, Intermittent, Less than 6 Hours Per Day (ICD-10-PCS; 2024-06-15)
DX: I13.2 Hypertensive heart and chronic kidney disease with heart failure and with stage 5 chronic kidney disease, or end stage renal disease (principal); J96.21 Acute and chronic respiratory failure with hypoxia; N18.6 End stage renal disease; I24.89 Other forms of acute ischemic heart disease; I16.0 Hypertensive urgency; I50.9 Heart failure, unspecified; E78.5 Hyperlipidemia, unspecified; E03.9 Hypothyroidism, unspecified; D64.9 Anemia, unspecified; J44.89 Other specified chronic obstructive pulmonary disease; Z88.0 Allergy status to penicillin; Z88.2 Allergy status to sulfonamides; Z99.2 Dependence on renal dialysis; Z88.8 Allergy status to other drugs, medicaments and biological substances; I25.2 Old myocardial infarction; Z79.899 Other long term (current) drug therapy
CPT/HCPCS: 36415; 36600; 71045; 80048; 80305; 81003; 82375; 82805; 83880; 84484; 85025; 85027; 86705; 86709; 87340; 90935; 93005; 94660; 99291; J0360; J0696; J1815; J1940; J2270; J2765; J3490

== ENCOUNTER 2024-08-22 02:17 | Inpatient (IN) | payer MEDICARE, MEDICAID ==
[~2024-08-22] VITALS: Ht 160 cm; Wt 62.6 kg
[~2024-08-22 02:17] MED LIST changes: -ASPI-1406 PO; -BACL-141 PO; -DIAZ10TA4 PO; -FAMO20TA8 PO; -FOLI-43 PO; +LEVO250T74 MT; +P20 MT; -T3 PO
[2024-08-22 03:15] LABS: CHLORIDE 108 mEq/L (98-107); POTASSIUM 4.7 mEq/L (3.5-5.1); SODIUM 144 mEq/L (136-145)
[2024-08-22 03:16] LABS: CARBON DIOXIDE 27 mEq/L (21-32); HEMOGLOBIN. 10.5 g/dL (12.0-16.0); MEAN CORPUSCULAR HGB CONC 30.1 g/dL (31.0-37.0); MEAN CORPUSCULAR VOLUME 89.7 fL (81.0-99.0); PLATELET 163 x1000/uL (130-400); RED CELL DISTRIBUTION WIDTH 22.1 % (11.6-14.6); WHITE BLOOD COUNT 4.3 x1000/uL (4.5-11.0)
[2024-08-22 03:21] LABS: GLUCOSE 101 mg/dL (70-105); PARTIAL THROMBOPLASTIN TIME 26.8 sec (23.4-31.0); UREA NITROGEN BLOOD 50 mg/dL (9-23)
[2024-08-22 03:22] LABS: TROPONIN I HIGH SENSITIVITY 30 ng/L (3.0-34)
[2024-08-22 03:33] LABS: DIFFERENTIAL COMMENT 1
[2024-08-22] MEDS: ACETAMINOPHEN 325MG TABLET PO NR (04:03)
[2024-08-22 04:06] LABS: CREATININE 7.6 mg/dL (0.6-1.0)
[2024-08-22 04:58] LABS: PLATELET ESTIMATE NORMAL
[2024-08-22 08:45] VITALS: BP 127/84; PULSE 65; RESP 20; TEMP 36.6696; O2SAT 100
[2024-08-22 12:00] VITALS: BP 129/75; PULSE 73; RESP 20; TEMP 36.22512; O2SAT 99
[2024-08-22] MEDS: CALCIUM ACETATE 667MG CAPSULE PO SCH (13:37)
[2024-08-22 15:45] LABS: HEPATITIS B SURFACE ANTIGEN NEGATIVE (Negative)
[2024-08-22 16:00] VITALS: BP 148/87; PULSE 83; RESP 20; TEMP 36.55848; O2SAT 96
[2024-08-22 16:06] LABS: HEPATITIS A AB IGM NEGATIVE (Negative)
[2024-08-22 16:07] LABS: HEPATITIS B CORE AB IGM NEGATIVE (Negative); HEPATITIS C AB REACTIVE (Pos) (Negative)
[2024-08-22 20:00] VITALS: BP 146/83; PULSE 84; RESP 17; TEMP 36.61404; O2SAT 98
[2024-08-22] MEDS: CARVEDILOL 12.5MG TABLET PO SCH (21:30)
[2024-08-22] MEDS: ATORVASTATIN CALCIUM 10MG TABLET PO SCH (21:30)
[2024-08-22] MEDS ORDERED: ACETAMINOPHEN 325MG TABLET PO PRN (22:30)
[2024-08-22] MEDS: HYDROCODONE/ACETAMINOPHEN 5/325MG TABLET PO PRN (23:11)
[2024-08-22 23:12] VITALS: PULSE 79; RESP 18; O2SAT 97
[2024-08-22] MEDS: ALBUTEROL (0.083%) 2.5MG/3ML NEB HHN SCH (23:12)
[2024-08-23] VITALS (19 sets, daily range): BP systolic 112–166; BP diastolic 60–93; PULSE 55–108; RESP 16–46; TEMP 36.22512–36.72516; O2SAT 86–100
[2024-08-23] MEDS ORDERED: NALOXONE HCL 0.4MG/ML VIAL IV PRN (02:30)
[2024-08-23 03:45] LABS: BG CARBOXYHEMOGLOBIN 0.7 % (0.5-1.5); BG DEOXYHEMOGLOBIN 0.6 % (0.0-5.0); BG FRACTION INSPIRED OXYGEN 100; BG OXYGEN SATURATION 99.4 % (94.0-98.0); BG OXYHEMOGLOBIN 98.7 % (94.0-98.0); BG PCO2 53.1 mmHg (32.0-45.0); BG PH 7.307 (7.350-7.450); BG PO2 163.4 mmHg (83.0-108.0); BG SAMPLE SITE RIGHT RADIAL; BG TOTAL HEMOGLOBIN 12.7 g/dL (12.0-16.0); BG VENT MODE MASK - BIPAP
[2024-08-23] MEDS: AMLODIPINE 2.5MG TABLET PO SCH (08:58)
[2024-08-23] MEDS: FUROSEMIDE 20MG TABLET PO SCH (08:58)
[2024-08-23] MEDS: LEVOTHYROXINE SODIUM 125MCG TABLET PO SCH (08:59)
[2024-08-23] MEDS ORDERED: ENOXAPARIN 30MG/0.3ML SYR SUBCUT SCH (09:00)
[2024-08-23] MEDS ORDERED: ASPIRIN 81MG TABLET PO SCH (09:00)
[2024-08-23] MEDS ORDERED: FAMOTIDINE 20MG TABLET PO SCH (09:00)
[2024-08-23] MEDS ORDERED: HYDRALAZINE HCL 50MG TABLET PO SCH (09:00)
[2024-08-23] MEDS ORDERED: LIDOCAINE HCL 1% 10 MG/ML 10ML VIAL ONE ×2 (09:12→10:36)
[2024-08-23] MEDS: HYDROCODONE/ACETAMINOPHEN 10/325MG TABLET PO PRN (11:37)
[2024-08-23] MEDS ORDERED: ATORVASTATIN CALCIUM 40MG TABLET PO SCH (21:00)
[2024-08-23] MEDS: MORPHINE SULFATE 2 MG/ML INJ (NOT FOR IM USE) IV PRN (21:05)
[2024-08-24] VITALS (12 sets, daily range): BP systolic 114–137; BP diastolic 66–78; PULSE 57–83; RESP 18–23; TEMP 35.94732–37.11408; O2SAT 97–100
[2024-08-25] VITALS (19 sets, daily range): BP systolic 102–137; BP diastolic 48–79; PULSE 51–77; RESP 17–24; TEMP 36.33624–37.16964; O2SAT 95–100
[2024-08-25 10:33] LABS: POTASSIUM 4.7 mEq/L (3.5-5.1)
[2024-08-25 10:34] LABS: CALCIUM 9.3 mg/dL (8.7-10.4)
[2024-08-25 10:47] LABS: CREATININE 4.8 mg/dL (0.6-1.0)
[2024-08-25] MEDS ORDERED: HEPARIN 1000 UNITS/ML 10ML ONE (10:54)
[2024-08-25] MEDS ORDERED: LIDOCAINE HCL 1% 10 MG/ML 10ML VIAL ONE (10:54)
[2024-08-25] MEDS ORDERED: IOHEXOL-300 100 ML BOTTLE ONE (10:55)
[2024-08-25] MEDS ORDERED: CLINDAMYCIN 600MG PREMIX 50 ML IV NR (11:00)
[2024-08-25] MEDS ORDERED: ALTEPLASE 2MG/VIAL ITC NR (11:00)
[2024-08-25 16:35] LABS: HEMATOCRIT. 34.4 % (36.0-48.0); HEMOGLOBIN. 10.9 g/dL (12.0-16.0); MEAN CORPUSCULAR HEMOGLOBIN 27.4 pg (28.0-32.0); MEAN CORPUSCULAR HGB CONC 31.7 g/dL (31.0-37.0); MEAN CORPUSCULAR VOLUME 86.5 fL (81.0-99.0); MEAN PLATELET VOLUME 7.6 fl (7.4-10.4); PLATELET 135 x1000/uL (130-400); RED BLOOD CELL COUNT 3.98 mill/uL (4.2-5.4); RED CELL DISTRIBUTION WIDTH 21.6 % (11.6-14.6); WHITE BLOOD COUNT 4.9 x1000/uL (4.5-11.0)
[2024-08-25 16:50] LABS: DIFFERENTIAL COMMENT 1
[2024-08-25 21:24] LABS: ANISOCYTOSIS 2+; PLATELET ESTIMATE NORMAL
[2024-08-26] VITALS (13 sets, daily range): BP systolic 108–140; BP diastolic 56–77; PULSE 55–81; RESP 16–20; TEMP 36.114–37.16964; O2SAT 95–100
[2024-08-26] MEDS: PREDNISONE 20MG TABLET PO NR (19:00)
[2024-08-27] VITALS (29 sets, daily range): BP systolic 126–158; BP diastolic 62–96; PULSE 70–97; RESP 16–20; TEMP 35.94732–37.16964; O2SAT 95–100
[2024-08-27] MEDS: PREDNISONE 20MG TABLET PO NR (00:16)
[2024-08-27] MEDS: DIPHENHYDRAMINE 50MG/ML VIAL IV NR (06:54)
[2024-08-27] MEDS: PREDNISONE 10MG TABLET PO NR (06:55)
[2024-08-27] MEDS ORDERED: LIDOCAINE HCL 1% 10 MG/ML 10ML VIAL ONE (07:44)
[2024-08-27] MEDS ORDERED: HEPARIN 1000 UNITS/ML 10ML ONE (07:45)
[2024-08-27] MEDS ORDERED: IOHEXOL-300 100 ML BOTTLE ONE (07:45)
[2024-08-27] MEDS: CLINDAMYCIN 600MG PREMIX 50 ML IV NR (08:00)
[2024-08-27] MEDS ORDERED: ALTEPLASE 2MG/VIAL ITC NR (08:00)
[2024-08-27] MEDS ORDERED: FENTANYL CITRATE/PF 50MCG/ML 2ML VIAL ONE (08:08)
[2024-08-27] MEDS: FENTANYL CITRATE/PF 50MCG/ML 2ML VIAL IV ONE (08:15)
[2024-08-27] MEDS: LACTULOSE 20G/30ML UDC PO NR (14:28)
[2024-08-28] VITALS (13 sets, daily range): BP systolic 110–161; BP diastolic 52–84; PULSE 60–83; RESP 18–21; TEMP 36.00288–37.05852; O2SAT 95–100
[2024-08-28] MEDS: LACTULOSE 20G/30ML UDC PO PRN (08:41)
[2024-08-28] MEDS ORDERED: ACETAMINOPHEN 325MG TABLET PO PRN ×3 (15:30→15:45)
== END 2024-08-28 17:28 | disposition home or self-care (01) | DRG 252 ==
LOC: ER 02:17 → EDBEDREQTM 05:12 → EDBEDREQ 05:12 → 5WST 08:38 → 7WST 23:25
PROVIDERS: ADMIT Internal Medicine; ATTEND Internal Medicine
PROC: 06HY33Z Insertion of Infusion Device into Lower Vein, Percutaneous Approach (ICD-10-PCS; 2024-08-23)
PROC: B54BZZA Ultrasonography of Right Lower Extremity Veins, Guidance (ICD-10-PCS; 2024-08-23)
PROC: 5A1D70Z Performance of Urinary Filtration, Intermittent, Less than 6 Hours Per Day (ICD-10-PCS; 2024-08-23)
PROC: 5A09357 Assistance with Respiratory Ventilation, Less than 24 Consecutive Hours, Continuous Positive Airway Pressure (ICD-10-PCS; 2024-08-23)
PROC: 5A1D70Z Performance of Urinary Filtration, Intermittent, Less than 6 Hours Per Day (ICD-10-PCS; 2024-08-25)
PROC: 5A09357 Assistance with Respiratory Ventilation, Less than 24 Consecutive Hours, Continuous Positive Airway Pressure (ICD-10-PCS; 2024-08-25)
PROC: 5A1D70Z Performance of Urinary Filtration, Intermittent, Less than 6 Hours Per Day (ICD-10-PCS; 2024-08-26)
PROC: 03783ZZ Dilation of Left Brachial Artery, Percutaneous Approach (ICD-10-PCS; principal; 2024-08-27)
PROC: 3E03317 Introduction of Other Thrombolytic into Peripheral Vein, Percutaneous Approach (ICD-10-PCS; 2024-08-27)
PROC: 3E03317 Introduction of Other Thrombolytic into Peripheral Vein, Percutaneous Approach (ICD-10-PCS; 2024-08-27)
PROC: 027V3ZZ Dilation of Superior Vena Cava, Percutaneous Approach (ICD-10-PCS; 2024-08-27)
PROC: B5171ZZ Fluoroscopy of Left Subclavian Vein using Low Osmolar Contrast (ICD-10-PCS; 2024-08-27)
PROC: B51N1ZZ Fluoroscopy of Left Upper Extremity Veins using Low Osmolar Contrast (ICD-10-PCS; 2024-08-27)
PROC: B5181ZZ Fluoroscopy of Superior Vena Cava using Low Osmolar Contrast (ICD-10-PCS; 2024-08-27)
PROC: B31N1ZZ Fluoroscopy of Other Upper Arteries using Low Osmolar Contrast (ICD-10-PCS; 2024-08-27)
PROC: B51W1ZZ Fluoroscopy of Dialysis Shunt/Fistula using Low Osmolar Contrast (ICD-10-PCS; 2024-08-27)
PROC: 5A1D70Z Performance of Urinary Filtration, Intermittent, Less than 6 Hours Per Day (ICD-10-PCS; 2024-08-28)
DX: T82.510A Breakdown (mechanical) of surgically created arteriovenous fistula, initial encounter (principal); J96.01 Acute respiratory failure with hypoxia; N18.6 End stage renal disease; I13.2 Hypertensive heart and chronic kidney disease with heart failure and with stage 5 chronic kidney disease, or end stage renal disease; J44.89 Other specified chronic obstructive pulmonary disease; E03.9 Hypothyroidism, unspecified; D64.9 Anemia, unspecified; T82.818A Embolism due to vascular prosthetic devices, implants and grafts, initial encounter; I50.9 Heart failure, unspecified; F17.200 Nicotine dependence, unspecified, uncomplicated; Z99.81 Dependence on supplemental oxygen; Z79.899 Other long term (current) drug therapy; Z88.0 Allergy status to penicillin; Z88.2 Allergy status to sulfonamides; Z99.2 Dependence on renal dialysis; Z88.8 Allergy status to other drugs, medicaments and biological substances; Y71.2 Prosthetic and other implants, materials and accessory cardiovascular devices associated with adverse incidents; Y92.89 Other specified places as the place of occurrence of the external cause
CPT/HCPCS: 36415; 36556; 36600; 36905; 71045; 76937; 80048; 82375; 82805; 83880; 84484; 85025; 86705; 86709; 87340; 90935; 93005; 94640; 94660; 94664; 99152; 99153; 99285; C1725; C1752; C1766; C1769; J1200; J1644; J2270; J2997; J3010; J3490; J7512; Q9967; G0500

== ENCOUNTER 2024-10-01 14:00 | Inpatient (IN) | payer MEDICARE, MEDICAID ==
[~2024-10-01] VITALS: Ht 160 cm; Wt 81.6 kg
[~2024-10-01 14:00] MED LIST changes: -LEVO250T74 MT
[2024-10-01] MEDS: METHYLPREDNISOLONE SOD SUCC 125MG/2ML (ACT-O-VIAL) IV STA (14:05)
[2024-10-01 14:22] VITALS: RESP 32
[2024-10-01] MEDS: ALBUTEROL (0.083%) 2.5MG/3ML NEB HHN STA (14:25)
[2024-10-01 15:24] LABS: HEMATOCRIT. 31.1 % (36.0-48.0); HEMOGLOBIN. 9.9 g/dL (12.0-16.0); MEAN CORPUSCULAR HEMOGLOBIN 29.3 pg (28.0-32.0); MEAN CORPUSCULAR HGB CONC 31.8 g/dL (31.0-37.0); MEAN CORPUSCULAR VOLUME 92.2 fL (81.0-99.0); MEAN PLATELET VOLUME 7.7 fl (7.4-10.4); PLATELET 160 x1000/uL (130-400); RED BLOOD CELL COUNT 3.38 mill/uL (4.2-5.4); RED CELL DISTRIBUTION WIDTH 23.5 % (11.6-14.6); WHITE BLOOD COUNT 4.6 x1000/uL (4.5-11.0)
[2024-10-01 15:26] LABS: DIFFERENTIAL COMMENT 1
[2024-10-01 15:29] LABS: CHLORIDE 109 mEq/L (98-107); POTASSIUM 5.4 mEq/L (3.5-5.1); SODIUM 144 mEq/L (136-145)
[2024-10-01 15:30] LABS: CALCIUM 8.6 mg/dL (8.7-10.4); CARBON DIOXIDE 22 mEq/L (21-32)
[2024-10-01 15:35] LABS: GLUCOSE 117 mg/dL (70-105); UREA NITROGEN BLOOD 51 mg/dL (9-23)
[2024-10-01 16:42] LABS: ANISOCYTOSIS 2+; PLATELET ESTIMATE NORMAL
[2024-10-01 16:47] LABS: CREATININE 8.2 mg/dL (0.6-1.0); TROPONIN I HIGH SENSITIVITY 51 ng/L (3.0-34)
[2024-10-01] MEDS: CALCIUM CHLORIDE 1,000 MG in DEXT 5% WATER 100 ML IV ONE (18:15)
[2024-10-01 18:53] LABS: TROPONIN I HIGH SENSITIVITY 48 ng/L (3.0-34)
[2024-10-01] MEDS: INSULIN REGULAR (HUMULIN R) 1000UNITS/10ML VIAL IV ONE (18:54)
[2024-10-01 19:00] VITALS: RESP 40
[2024-10-01] MEDS: DEXTROSE 50% WATER 50ML SYRINGE IV ONE (19:06)
[2024-10-01 20:47] VITALS: RESP 28
[2024-10-01 20:48] LABS: TROPONIN I HIGH SENSITIVITY 39 ng/L (3.0-34)
[2024-10-01] MEDS: MORPHINE SULFATE 2 MG/ML INJ (NOT FOR IM USE) IV NR (22:43)
[2024-10-02] VITALS (19 sets, daily range): BP systolic 104–134; BP diastolic 49–118; PULSE 75–102; RESP 14–37; TEMP 35.862–36.72516; O2SAT 95–100
[2024-10-02] MEDS ORDERED: CLONIDINE 0.1MG TABLET PO PRN (03:30)
[2024-10-02] MEDS: AMLODIPINE 5MG TABLET PO SCH (04:49)
[2024-10-02] MEDS: FUROSEMIDE 40MG/4ML VIAL IV SCH (04:50)
[2024-10-02] MEDS: HYDROCODONE/ACETAMINOPHEN 10/325MG TABLET PO PRN (04:50)
[2024-10-02] MEDS: IPRATROPIUM/ALBUTEROL 0.5-3(2.5)MG/3ML NEB HHN SCH (05:00)
[2024-10-02] MEDS: ASPIRIN 325MG EC TABLET PO SCH (08:58)
[2024-10-02] MEDS: ENOXAPARIN 30MG/0.3ML SYR SUBCUT SCH (09:03)
[2024-10-02] MEDS: METOCLOPRAMIDE HCL 5MG TABLET PO SCH (10:36)
[2024-10-02 22:00] LABS: TROPONIN I HIGH SENSITIVITY 53 ng/L (3.0-34)
[2024-10-02 22:08] LABS: HEPATITIS B SURFACE ANTIGEN NEGATIVE (Negative)
[2024-10-02 22:28] LABS: HEPATITIS A AB IGM NEGATIVE (Negative)
[2024-10-02 22:29] LABS: HEPATITIS B CORE AB IGM NEGATIVE (Negative); HEPATITIS C AB REACTIVE (Pos) (Negative)
[2024-10-03] VITALS (9 sets, daily range): BP systolic 92–115; BP diastolic 51–71; PULSE 77–93; RESP 13–24; TEMP 36.50292–36.72516; O2SAT 96–100
[2024-10-03] MEDS ORDERED: NALOXONE HCL 0.4MG/ML VIAL IV PRN (12:00)
[2024-10-03] MEDS ORDERED: ASPI-867 PO (15:58)
[2024-10-03 16:22] LABS: BASOPHILS % 0.3 % (0.0-2.0); EOSINOPHILS % 4.2 % (0.0-5.0); HEMATOCRIT. 30.2 % (36.0-48.0); HEMOGLOBIN. 9.6 g/dL (12.0-16.0); LYMPHOCYTES % 22.2 % (20.0-50.0); MEAN CORPUSCULAR HEMOGLOBIN 29.6 pg (28.0-32.0); MEAN CORPUSCULAR HGB CONC 31.8 g/dL (31.0-37.0); MEAN CORPUSCULAR VOLUME 93.1 fL (81.0-99.0); MEAN PLATELET VOLUME 7.6 fl (7.4-10.4); NEUTROPHILS % 62.3 % (40.0-76.0); PLATELET 153 x1000/uL (130-400); RED BLOOD CELL COUNT 3.24 mill/uL (4.2-5.4); WHITE BLOOD COUNT 4.9 x1000/uL (4.5-11.0)
[2024-10-03 16:23] LABS: DIFFERENTIAL COMMENT 1
[2024-10-03 16:24] LABS: POTASSIUM 4.5 mEq/L (3.5-5.1)
[2024-10-03 16:26] LABS: CALCIUM 8.3 mg/dL (8.7-10.4)
[2024-10-03 16:35] LABS: CREATININE 7.5 mg/dL (0.6-1.0)
[2024-10-09] MEDS ORDERED: LEVO250T74 MT (11:05)
== END 2024-10-03 17:55 | disposition home or self-care (01) | DRG 291 ==
LOC: ER 14:00 → 5EST 18:11 → EDBEDREQ 18:22 → 7EST 10-03 11:51
PROVIDERS: ADMIT Internal Medicine; ATTEND Internal Medicine
PROC: 5A09357 Assistance with Respiratory Ventilation, Less than 24 Consecutive Hours, Continuous Positive Airway Pressure (ICD-10-PCS; principal; 2024-10-01)
PROC: 5A1D70Z Performance of Urinary Filtration, Intermittent, Less than 6 Hours Per Day (ICD-10-PCS; 2024-10-02)
DX: I13.2 Hypertensive heart and chronic kidney disease with heart failure and with stage 5 chronic kidney disease, or end stage renal disease (principal); J96.01 Acute respiratory failure with hypoxia; N18.6 End stage renal disease; I50.9 Heart failure, unspecified; J44.89 Other specified chronic obstructive pulmonary disease; E78.5 Hyperlipidemia, unspecified; D64.9 Anemia, unspecified; F41.9 Anxiety disorder, unspecified; Z91.158 Patient's noncompliance with renal dialysis for other reason; Z88.0 Allergy status to penicillin; Z88.2 Allergy status to sulfonamides; Z99.2 Dependence on renal dialysis; Z99.81 Dependence on supplemental oxygen; Z79.899 Other long term (current) drug therapy
CPT/HCPCS: 36415; 71045; 80048; 83880; 84484; 85025; 86705; 86709; 87340; 90935; 93005; 94070; 94640; 94660; 94664; 99291; J1650; J1815; J1940; J2270; J2919; J3490; J7060; J8597

== ENCOUNTER 2024-10-30 05:53 | Inpatient (IN) | payer MEDICARE, MEDICAID ==
[~2024-10-30] VITALS: Ht 157.5 cm; Wt 60.3 kg
[~2024-10-30 05:53] MED LIST changes: +ASPI-867 PO; +LEVO250T74 MT; -P20 MT
[2024-10-30] MEDS: METHYLPREDNISOLONE SOD SUCC 125MG/2ML (ACT-O-VIAL) IV STA (06:10)
[2024-10-30 06:18] VITALS: RESP 37
[2024-10-30 06:27] LABS: BASOPHILS % 0.6 % (0.0-2.0); DIFFERENTIAL COMMENT 0; EOSINOPHILS % 3.5 % (0.0-5.0); HEMATOCRIT. 39.7 % (36.0-48.0); HEMOGLOBIN. 12.1 g/dL (12.0-16.0); LYMPHOCYTES % 33.6 % (20.0-50.0); MEAN CORPUSCULAR HEMOGLOBIN 27.5 pg (28.0-32.0); MEAN CORPUSCULAR HGB CONC 30.4 g/dL (31.0-37.0); MEAN CORPUSCULAR VOLUME 90.3 fL (81.0-99.0); MEAN PLATELET VOLUME 7.5 fl (7.4-10.4); MONOCYTES % 5.7 % (2.0-8.0); NEUTROPHILS % 56.6 % (40.0-76.0); PLATELET 294 x1000/uL (130-400); RED CELL DISTRIBUTION WIDTH 20.4 % (11.6-14.6); WHITE BLOOD COUNT 9.9 x1000/uL (4.5-11.0)
[2024-10-30 06:29] LABS: CHLORIDE 104 mEq/L (98-107); SODIUM 144 mEq/L (136-145)
[2024-10-30 06:30] VITALS: PULSE 80; RESP 20; O2SAT 95
[2024-10-30] MEDS: ALBUTEROL (0.083%) 2.5MG/3ML NEB HHN SCH (06:30)
[2024-10-30] MEDS: IPRATROPIUM BROMIDE (0.02%) 0.5MG/2.5ML NEB HHN STA (06:30)
[2024-10-30 06:31] LABS: CALCIUM 9.2 mg/dL (8.7-10.4); CARBON DIOXIDE 27 mEq/L (21-32)
[2024-10-30 06:36] LABS: GLUCOSE 192 mg/dL (70-105); UREA NITROGEN BLOOD 38 mg/dL (9-23)
[2024-10-30 06:38] LABS: ALANINE AMINOTRANSFERASE 43 IU/L (10-49); ALBUMIN 4.4 g/dL (3.2-4.8); ASPARTATE AMINOTRANSFERASE 51 IU/L (<34); BILIRUBIN TOTAL 0.4 mg/dL (0.1-1.0); PROTEIN TOTAL 8.4 g/dL (6.0-8.3)
[2024-10-30 06:40] LABS: BILIRUBIN DIRECT < 0.1 mg/dL (<=3.0)
[2024-10-30 06:42] LABS: CREATININE 7.3 mg/dL (0.6-1.0); TROPONIN I HIGH SENSITIVITY 59 ng/L (3.0-34)
[2024-10-30 07:30] VITALS: PULSE 80; RESP 20; O2SAT 95
[2024-10-30 10:22] LABS: BG BASE EXCESS 1.1 mmol/L (-2.0-3.0); BG CARBOXYHEMOGLOBIN 0.8 % (0.5-1.5); BG DEOXYHEMOGLOBIN 10.9 % (0.0-5.0); BG FRACTION INSPIRED OXYGEN 60; BG HCO3 ACT 27.3 mmol/L (21.0-28.0); BG METHEMOGLOBIN 0.3 % (0.5-1.5); BG PCO2 49.8 mmHg (32.0-45.0); BG PH 7.356 (7.350-7.450); BG PO2 61.8 mmHg (83.0-108.0); BG SAMPLE SITE RIGHT BRACHIAL; BG TOTAL RESPIRATORY RATE 44 b/min; BG VENT MODE MASK - BIPAP
[2024-10-30 10:45] LABS: TROPONIN I HIGH SENSITIVITY 97 ng/L (3.0-34)
[2024-10-30 11:58] LABS: HEPATITIS B SURFACE ANTIGEN NEGATIVE (Negative)
[2024-10-30 12:19] LABS: HEPATITIS A AB IGM NEGATIVE (Negative); HEPATITIS B CORE AB IGM NEGATIVE (Negative)
[2024-10-30 12:20] LABS: HEPATITIS C AB REACTIVE (Pos) (Negative)
[2024-10-30] MEDS ORDERED: IPRATROPIUM/ALBUTEROL 0.5-3(2.5)MG/3ML NEB ONE (14:04)
[2024-10-30] MEDS ORDERED: IPRATROPIUM/ALBUTEROL 0.5-3(2.5)MG/3ML NEB HHN PRN (14:15)
[2024-10-30] MEDS: AMLODIPINE 5MG TABLET PO SCH (14:15)
[2024-10-30] MEDS ORDERED: ONDANSETRON HCL 4MG/2ML INJ IV PRN (14:15)
[2024-10-30] MEDS ORDERED: NALOXONE HCL 0.4MG/ML VIAL IV PRN (14:15)
[2024-10-30] MEDS: ENOXAPARIN 30MG/0.3ML SYR SUBCUT SCH (15:34)
[2024-10-30] MEDS: CALCIUM ACETATE 667MG CAPSULE PO SCH (17:31)
[2024-10-30] MEDS: HYDROCODONE/ACETAMINOPHEN 5/325MG TABLET PO PRN (19:12)
[2024-10-30] MEDS: LATANOPROST 0.005% OPHTH DROPS 2.5ML EACHEYE SCH (21:35)
[2024-10-30] MEDS: CARVEDILOL 12.5MG TABLET PO SCH (21:35)
[2024-10-30 23:00] VITALS: RESP 22
[2024-10-31] VITALS (19 sets, daily range): BP systolic 90–133; BP diastolic 65–95; PULSE 71–102; RESP 20–37; TEMP 36–36.8; O2SAT 92–100
[2024-10-31 02:17] LABS: CREATINE KINASE 99 IU/L (34-145)
[2024-10-31 02:36] LABS: TROPONIN I HIGH SENSITIVITY 79 ng/L (3.0-34)
[2024-10-31] MEDS: LEVOTHYROXINE SODIUM 125MCG TABLET PO SCH (08:34)
[2024-10-31] MEDS: FOLIC ACID/VITAMIN B COMP W-C TABLET PO SCH (11:15)
[2024-10-31] MEDS: ASPIRIN 325MG EC TABLET PO SCH (11:15)
[2024-10-31 13:27] LABS: BASOPHILS % 0.6 % (0.0-2.0); EOSINOPHILS % 0.2 % (0.0-5.0); HEMOGLOBIN. 10.4 g/dL (12.0-16.0); LYMPHOCYTES % 20.8 % (20.0-50.0); MEAN CORPUSCULAR HEMOGLOBIN 27.4 pg (28.0-32.0); MEAN CORPUSCULAR HGB CONC 31.3 g/dL (31.0-37.0); MEAN CORPUSCULAR VOLUME 87.5 fL (81.0-99.0); MEAN PLATELET VOLUME 7.6 fl (7.4-10.4); MONOCYTES % 13.8 % (2.0-8.0); NEUTROPHILS % 64.6 % (40.0-76.0); PLATELET 189 x1000/uL (130-400); RED BLOOD CELL COUNT 3.78 mill/uL (4.2-5.4); RED CELL DISTRIBUTION WIDTH 20.4 % (11.6-14.6); WHITE BLOOD COUNT 5.3 x1000/uL (4.5-11.0)
[2024-10-31 13:40] LABS: CHLORIDE 103 mEq/L (98-107); POTASSIUM 5.2 mEq/L (3.5-5.1); SODIUM 143 mEq/L (136-145)
[2024-10-31 13:42] LABS: CALCIUM 8.7 mg/dL (8.7-10.4); CARBON DIOXIDE 29 mEq/L (21-32)
[2024-10-31 13:47] LABS: GLUCOSE 102 mg/dL (70-105); UREA NITROGEN BLOOD 62 mg/dL (9-23)
[2024-10-31 13:48] LABS: ALANINE AMINOTRANSFERASE 30 IU/L (10-49); ASPARTATE AMINOTRANSFERASE 32 IU/L (<34)
[2024-10-31 13:49] LABS: ALBUMIN 3.5 g/dL (3.2-4.8); BILIRUBIN DIRECT 0.1 mg/dL (<=3.0); BILIRUBIN TOTAL 0.3 mg/dL (0.1-1.0); PHOSPHORUS 6.5 mg/dL (2.5-4.9); PROTEIN TOTAL 6.1 g/dL (6.0-8.3)
[2024-10-31 13:51] LABS: CREATINE KINASE 101 IU/L (34-145)
[2024-10-31 13:52] LABS: CREATININE 8.5 mg/dL (0.6-1.0); TROPONIN I HIGH SENSITIVITY 75 ng/L (3.0-34)
[2024-10-31 14:04] LABS: INR 1.1; PROTHROMBIN TIME 12.4 sec (9.6-11.0)
[2024-11-01] VITALS (12 sets, daily range): BP systolic 106–129; BP diastolic 57–80; PULSE 76–94; RESP 20–36; TEMP 36–37; O2SAT 92–98
[2024-11-01 17:53] LABS: HEMATOCRIT. 31.3 % (36.0-48.0); MEAN CORPUSCULAR HEMOGLOBIN 27.3 pg (28.0-32.0); MEAN CORPUSCULAR VOLUME 85.4 fL (81.0-99.0); MEAN PLATELET VOLUME 7.6 fl (7.4-10.4); PLATELET 201 x1000/uL (130-400); RED BLOOD CELL COUNT 3.67 mill/uL (4.2-5.4); RED CELL DISTRIBUTION WIDTH 19.8 % (11.6-14.6); WHITE BLOOD COUNT 3.8 x1000/uL (4.5-11.0)
[2024-11-01 17:54] LABS: DIFFERENTIAL COMMENT 1
[2024-11-01 18:11] LABS: CALCIUM 8.3 mg/dL (8.7-10.4); CARBON DIOXIDE 28 mEq/L (21-32); CHLORIDE 102 mEq/L (98-107); POTASSIUM 3.9 mEq/L (3.5-5.1); SODIUM 139 mEq/L (136-145)
[2024-11-01 18:16] LABS: GLUCOSE 115 mg/dL (70-105)
[2024-11-01 18:17] LABS: UREA NITROGEN BLOOD 56 mg/dL (9-23)
[2024-11-01 18:19] LABS: PHOSPHORUS 4.1 mg/dL (2.5-4.9)
[2024-11-01 18:29] LABS: CREATININE 7.2 mg/dL (0.6-1.0)
[2024-11-01 19:38] LABS: PLATELET ESTIMATE NORMAL
[2024-11-01 19:39] LABS: ANISOCYTOSIS 1+
[2024-11-02] VITALS (18 sets, daily range): BP systolic 99–141; BP diastolic 58–92; PULSE 72–97; RESP 18–30; TEMP 35.9–37.2; O2SAT 94–100
[2024-11-02] MEDS: DICLOFENAC SODIUM 1% GEL 50GM TOP SCH (17:03)
[2024-11-03] VITALS (13 sets, daily range): BP systolic 84–139; BP diastolic 56–88; PULSE 73–97; RESP 15–42; TEMP 36.8–37; O2SAT 95–100
[2024-11-03] MEDS: MAGNESIUM/ALUMINUM HYDROXIDE/SIMETHICONE 30ML UDC PO PRN (22:06)
[2024-11-04] VITALS (20 sets, daily range): BP systolic 115–138; BP diastolic 56–82; PULSE 66–78; RESP 17–24; TEMP 36.2–36.55848; O2SAT 76–98
[2024-11-04] MEDS ORDERED: NALOXONE HCL 0.4MG/ML VIAL IV PRN (15:00)
[2024-11-04] MEDS: HYDROCODONE/ACETAMINOPHEN 5/325MG TABLET PO PRN (15:19)
[2024-11-05] MEDS ORDERED: AMLODIPINE 2.5MG TABLET PO SCH (09:00)
== END 2024-11-04 22:46 | disposition home or self-care (01) | DRG 189 ==
LOC: ER 05:53 → EDBEDREQ 07:00 → EDBEDREQTM 07:00 → 5EST 10-31 09:20
PROVIDERS: ADMIT Internal Medicine; ATTEND Internal Medicine
PROC: 5A09357 Assistance with Respiratory Ventilation, Less than 24 Consecutive Hours, Continuous Positive Airway Pressure (ICD-10-PCS; principal; 2024-10-30)
PROC: 5A09357 Assistance with Respiratory Ventilation, Less than 24 Consecutive Hours, Continuous Positive Airway Pressure (ICD-10-PCS; 2024-10-31)
PROC: 5A1D70Z Performance of Urinary Filtration, Intermittent, Less than 6 Hours Per Day (ICD-10-PCS; 2024-10-31)
PROC: 5A09357 Assistance with Respiratory Ventilation, Less than 24 Consecutive Hours, Continuous Positive Airway Pressure (ICD-10-PCS; 2024-11-01)
PROC: 5A1D70Z Performance of Urinary Filtration, Intermittent, Less than 6 Hours Per Day (ICD-10-PCS; 2024-11-02)
PROC: 5A0935A Assistance with Respiratory Ventilation, Less than 24 Consecutive Hours, High Flow/Velocity Cannula (ICD-10-PCS; 2024-11-03)
PROC: 5A09357 Assistance with Respiratory Ventilation, Less than 24 Consecutive Hours, Continuous Positive Airway Pressure (ICD-10-PCS; 2024-11-04)
PROC: 5A1D70Z Performance of Urinary Filtration, Intermittent, Less than 6 Hours Per Day (ICD-10-PCS; 2024-11-04)
DX: J96.01 Acute respiratory failure with hypoxia (principal); N18.6 End stage renal disease; J44.1 Chronic obstructive pulmonary disease with (acute) exacerbation; I13.2 Hypertensive heart and chronic kidney disease with heart failure and with stage 5 chronic kidney disease, or end stage renal disease; I50.9 Heart failure, unspecified; E03.9 Hypothyroidism, unspecified; I25.10 Atherosclerotic heart disease of native coronary artery without angina pectoris; Z88.0 Allergy status to penicillin; Z88.2 Allergy status to sulfonamides; Z99.2 Dependence on renal dialysis; Z79.899 Other long term (current) drug therapy; Z88.8 Allergy status to other drugs, medicaments and biological substances; Z91.158 Patient's noncompliance with renal dialysis for other reason
CPT/HCPCS: 36415; 36600; 71045; 76604; 80048; 80076; 82375; 82550; 82805; 83735; 84100; 84484; 85025; 86705; 86709; 87340; 90935; 93005; 93970; 94070; 94640; 94660; 94664; 98960; 99291; A4606; A4663; J1650; J2919

== ENCOUNTER 2024-12-04 06:14 | Inpatient (IN) | payer MEDICARE, MEDICAID ==
[2024-12-04] VITALS (20 sets, daily range): BP systolic 110–158; BP diastolic 64–100; PULSE 67–86; RESP 18–45; TEMP 36.22512–36.7; O2SAT 98–100
[~2024-12-04] VITALS: Ht 165.1 cm; Wt 49.9 kg
[~2024-12-04 06:14] MED LIST changes: -ASPI-867 PO
[2024-12-04] MEDS: ACETAMINOPHEN 325MG TABLET PO ONE (06:59)
[2024-12-04 07:54] LABS: POTASSIUM 5.4 mEq/L (3.5-5.1)
[2024-12-04 07:55] LABS: CALCIUM 9.2 mg/dL (8.7-10.4)
[2024-12-04 08:13] LABS: BASOPHILS % 0.9 % (0.0-2.0); EOSINOPHILS % 3.1 % (0.0-5.0); HEMATOCRIT. 29.7 % (36.0-48.0); HEMOGLOBIN. 8.9 g/dL (12.0-16.0); MEAN CORPUSCULAR HEMOGLOBIN 26.7 pg (28.0-32.0); MEAN CORPUSCULAR HGB CONC 29.8 g/dL (31.0-37.0); MEAN CORPUSCULAR VOLUME 89.7 fL (81.0-99.0); MEAN PLATELET VOLUME 7.5 fl (7.4-10.4); MONOCYTES % 12.3 % (2.0-8.0); NEUTROPHILS % 56.7 % (40.0-76.0); PLATELET 205 x1000/uL (130-400); RED BLOOD CELL COUNT 3.31 mill/uL (4.2-5.4); RED CELL DISTRIBUTION WIDTH 23.2 % (11.6-14.6); WHITE BLOOD COUNT 3.8 x1000/uL (4.5-11.0)
[2024-12-04 08:36] LABS: CREATININE 8.3 mg/dL (0.6-1.0)
[2024-12-04 09:01] LABS: DIFFERENTIAL COMMENT 1
[2024-12-04 09:25] LABS: HEPATITIS B SURFACE ANTIGEN NEGATIVE (Negative)
[2024-12-04 09:31] LABS: TROPONIN I HIGH SENSITIVITY 53 ng/L (3.0-34)
[2024-12-04 09:45] LABS: HEPATITIS A AB IGM NEGATIVE (Negative)
[2024-12-04 09:46] LABS: HEPATITIS B CORE AB IGM NEGATIVE (Negative); HEPATITIS C AB REACTIVE (Pos) (Negative)
[2024-12-04] MEDS ORDERED: LORAZEPAM 0.5MG TABLET PO PRN (12:00)
[2024-12-04] MEDS ORDERED: DOCUSATE SODIUM 100MG CAPSULE PO PRN (12:00)
[2024-12-04] MEDS ORDERED: IPRATROPIUM/ALBUTEROL 0.5-3(2.5)MG/3ML NEB HHN PRN (12:00)
[2024-12-04] MEDS ORDERED: ACETAMINOPHEN 325MG TABLET PO PRN (12:00)
[2024-12-04] MEDS ORDERED: ONDANSETRON HCL 4MG/2ML INJ IV PRN (12:00)
[2024-12-04] MEDS ORDERED: CLONIDINE 0.1MG TABLET PO PRN (12:00)
[2024-12-04] MEDS ORDERED: GUAIFENESIN 200MG/10ML SUGAR FREE UDC PO PRN (12:00)
[2024-12-04] MEDS: CALCIUM ACETATE 667MG CAPSULE PO SCH (14:13)
[2024-12-04] MEDS: ENOXAPARIN 30MG/0.3ML SYR SUBCUT SCH (18:06)
[2024-12-04 18:58] LABS: BG BASE EXCESS 4.1 mmol/L (-2.0-3.0); BG DEOXYHEMOGLOBIN 0.6 % (0.0-5.0); BG FRACTION INSPIRED OXYGEN 70; BG HCO3 ACT 28.2 mmol/L (21.0-28.0); BG METHEMOGLOBIN 0.3 % (0.5-1.5); BG OXYGEN SATURATION 99.4 % (94.0-98.0); BG OXYHEMOGLOBIN 98.1 % (94.0-98.0); BG PCO2 40.6 mmHg (32.0-45.0); BG PO2 150.3 mmHg (83.0-108.0); BG SAMPLE SITE RIGHT BRACHIAL; BG TOTAL HEMOGLOBIN 9.5 g/dL (12.0-16.0); BG VENT MODE MASK - BIPAP
[2024-12-04] MEDS: LATANOPROST 0.005% OPHTH DROPS 2.5ML EACHEYE SCH (21:34)
[2024-12-04] MEDS: CARVEDILOL 12.5MG TABLET PO SCH (21:37)
[2024-12-04] MEDS: ACETAMINOPHEN 325MG TABLET PO PRN (21:44)
[2024-12-05] VITALS (14 sets, daily range): BP systolic 96–112; BP diastolic 53–63; PULSE 52–80; RESP 16–35; TEMP 35.9–36.6; O2SAT 98–100
[2024-12-05 00:24] LABS: BG BASE EXCESS 4.3 mmol/L (-2.0-3.0); BG DEOXYHEMOGLOBIN 0.8 % (0.0-5.0); BG FRACTION INSPIRED OXYGEN 50; BG HCO3 ACT 28.7 mmol/L (21.0-28.0); BG METHEMOGLOBIN 0.3 % (0.5-1.5); BG OXYGEN SATURATION 99.2 % (94.0-98.0); BG OXYHEMOGLOBIN 97.9 % (94.0-98.0); BG PCO2 42.3 mmHg (32.0-45.0); BG PH 7.449 (7.350-7.450); BG PO2 130.6 mmHg (83.0-108.0); BG SAMPLE SITE RIGHT RADIAL; BG VENT MODE MASK - BIPAP
[2024-12-05] MEDS: HYDROCODONE/ACETAMINOPHEN 5/325MG TABLET PO PRN (01:47)
[2024-12-05 07:23] LABS: HEMATOCRIT. 24.7 % (36.0-48.0); HEMOGLOBIN. 7.6 g/dL (12.0-16.0); MEAN CORPUSCULAR HEMOGLOBIN 26.7 pg (28.0-32.0); MEAN CORPUSCULAR HGB CONC 30.9 g/dL (31.0-37.0); MEAN CORPUSCULAR VOLUME 86.4 fL (81.0-99.0); MEAN PLATELET VOLUME 7.2 fl (7.4-10.4); PLATELET 159 x1000/uL (130-400); RED BLOOD CELL COUNT 2.86 mill/uL (4.2-5.4); RED CELL DISTRIBUTION WIDTH 21.7 % (11.6-14.6); WHITE BLOOD COUNT 2.9 x1000/uL (4.5-11.0)
[2024-12-05 07:30] LABS: POTASSIUM 4.5 mEq/L (3.5-5.1)
[2024-12-05 07:31] LABS: CALCIUM 8.1 mg/dL (8.7-10.4)
[2024-12-05 08:06] LABS: DIFFERENTIAL COMMENT 1
[2024-12-05 08:42] LABS: CREATININE 6.8 mg/dL (0.6-1.0)
[2024-12-05] MEDS: LEVOTHYROXINE SODIUM 125MCG TABLET PO SCH (09:56)
[2024-12-05] MEDS: AMLODIPINE 2.5MG TABLET PO SCH (09:58)
[2024-12-05] MEDS: FUROSEMIDE 20MG TABLET PO SCH (09:58)
[2024-12-06] VITALS (20 sets, daily range): BP systolic 100–152; BP diastolic 54–82; PULSE 62–82; RESP 15–36; TEMP 36.1–36.8; O2SAT 33–100
[2024-12-06 06:21] LABS: POTASSIUM 4.5 mEq/L (3.5-5.1)
[2024-12-06 06:22] LABS: CALCIUM 8.2 mg/dL (8.7-10.4)
[2024-12-06 07:16] LABS: CREATININE 7.6 mg/dL (0.6-1.0)
[2024-12-06 08:45] LABS: BG BASE EXCESS 1.8 mmol/L (-2.0-3.0); BG DEOXYHEMOGLOBIN 7.3 % (0.0-5.0); BG FRACTION INSPIRED OXYGEN 44; BG HCO3 ACT 26.2 mmol/L (21.0-28.0); BG METHEMOGLOBIN 0.3 % (0.5-1.5); BG OXYGEN SATURATION 92.6 % (94.0-98.0); BG OXYHEMOGLOBIN 91.4 % (94.0-98.0); BG PCO2 40.4 mmHg (32.0-45.0); BG SAMPLE SITE RIGHT BRACHIAL; BG VENT MODE NASAL CANNULA
[2024-12-06 09:52] LABS: ANISOCYTOSIS 2+; PLATELET ESTIMATE NORMAL
[2024-12-06 16:49] LABS: BG BASE EXCESS 4.1 mmol/L (-2.0-3.0); BG CARBOXYHEMOGLOBIN 0.8 % (0.5-1.5); BG FRACTION INSPIRED OXYGEN 21; BG HCO3 ACT 27.6 mmol/L (21.0-28.0); BG METHEMOGLOBIN 0.3 % (0.5-1.5); BG OXYGEN SATURATION 90.9 % (94.0-98.0); BG OXYHEMOGLOBIN 89.9 % (94.0-98.0); BG PH 7.491 (7.350-7.450); BG PO2 58.5 mmHg (83.0-108.0); BG SAMPLE SITE RIGHT BRACHIAL; BG TOTAL HEMOGLOBIN 9.8 g/dL (12.0-16.0); BG VENT MODE ROOM AIR
[2024-12-07] VITALS (21 sets, daily range): BP systolic 104–147; BP diastolic 54–92; PULSE 66–89; RESP 15–35; TEMP 36.2–37.4; O2SAT 97–100
[2024-12-07 06:35] LABS: POTASSIUM 4.6 mEq/L (3.5-5.1)
[2024-12-07 06:36] LABS: CALCIUM 8.4 mg/dL (8.7-10.4)
[2024-12-07 07:07] LABS: CREATININE 6.7 mg/dL (0.6-1.0)
[2024-12-07] MEDS ORDERED: NALOXONE HCL 0.4MG/ML VIAL IV PRN (09:30)
[2024-12-07] MEDS: EPOETIN ALFA-EPBX 4,000 UNIT/ML VIAL SUBCUT NR (13:23)
[2024-12-08] VITALS (13 sets, daily range): BP systolic 111–141; BP diastolic 59–89; PULSE 58–80; RESP 17–32; TEMP 36.2–37.3; O2SAT 98–100
[2024-12-08 07:51] LABS: POTASSIUM 3.9 mEq/L (3.5-5.1)
[2024-12-08 07:52] LABS: CALCIUM 8.5 mg/dL (8.7-10.4)
[2024-12-08 08:09] LABS: CREATININE 5.7 mg/dL (0.6-1.0)
== END 2024-12-08 16:30 | disposition left against medical advice (07) | DRG 189 ==
LOC: ER 06:14 → 5EST 06:53 → EDBEDREQTM 06:57 → EDBEDREQ 06:57
PROVIDERS: ADMIT Internal Medicine; ATTEND Internal Medicine
PROC: 5A09357 Assistance with Respiratory Ventilation, Less than 24 Consecutive Hours, Continuous Positive Airway Pressure (ICD-10-PCS; principal; 2024-12-04)
PROC: 5A1D70Z Performance of Urinary Filtration, Intermittent, Less than 6 Hours Per Day (ICD-10-PCS; 2024-12-04)
PROC: 5A09357 Assistance with Respiratory Ventilation, Less than 24 Consecutive Hours, Continuous Positive Airway Pressure (ICD-10-PCS; 2024-12-05)
PROC: 5A09357 Assistance with Respiratory Ventilation, Less than 24 Consecutive Hours, Continuous Positive Airway Pressure (ICD-10-PCS; 2024-12-06)
PROC: 5A1D70Z Performance of Urinary Filtration, Intermittent, Less than 6 Hours Per Day (ICD-10-PCS; 2024-12-06)
PROC: 5A09357 Assistance with Respiratory Ventilation, Less than 24 Consecutive Hours, Continuous Positive Airway Pressure (ICD-10-PCS; 2024-12-07)
PROC: 5A1D70Z Performance of Urinary Filtration, Intermittent, Less than 6 Hours Per Day (ICD-10-PCS; 2024-12-07)
PROC: 5A1D70Z Performance of Urinary Filtration, Intermittent, Less than 6 Hours Per Day (ICD-10-PCS; 2024-12-08)
DX: J96.01 Acute respiratory failure with hypoxia (principal); N18.6 End stage renal disease; I13.2 Hypertensive heart and chronic kidney disease with heart failure and with stage 5 chronic kidney disease, or end stage renal disease; K92.2 Gastrointestinal hemorrhage, unspecified; I50.9 Heart failure, unspecified; D64.9 Anemia, unspecified; Z99.2 Dependence on renal dialysis; J44.89 Other specified chronic obstructive pulmonary disease; E87.5 Hyperkalemia; Z79.899 Other long term (current) drug therapy; Z88.2 Allergy status to sulfonamides; Z88.0 Allergy status to penicillin; Z87.891 Personal history of nicotine dependence; Z53.29 Procedure and treatment not carried out because of patient's decision for other reasons
CPT/HCPCS: 36415; 36600; 71045; 80048; 82375; 82805; 84484; 85025; 86705; 86709; 87340; 90935; 93005; 94640; 94660; 97166; 99291; A4606; J0885; J1650

== ENCOUNTER 2025-03-11 20:48 | Inpatient (IN) | payer MEDICARE, MEDICAID ==
[~2025-03-11] VITALS: Ht 165.1 cm; Wt 54.1 kg
[~2025-03-11 20:48] MED LIST changes: -DICL100G58 TP; -LEVO250T74 MT; +LOSA50TA41 PO
[2025-03-11 21:51] LABS: BASOPHILS % 0.5 % (0.0-2.0); EOSINOPHILS % 0.9 % (0.0-5.0); HEMATOCRIT. 36.1 % (36.0-48.0); HEMOGLOBIN. 11.2 g/dL (12.0-16.0); LYMPHOCYTES % 14.1 % (20.0-50.0); MEAN CORPUSCULAR HEMOGLOBIN 26.4 pg (28.0-32.0); MEAN CORPUSCULAR HGB CONC 31.1 g/dL (31.0-37.0); MEAN CORPUSCULAR VOLUME 84.8 fL (81.0-99.0); MEAN PLATELET VOLUME 8.2 fl (7.4-10.4); MONOCYTES % 9.3 % (2.0-8.0); NEUTROPHILS % 75.2 % (40.0-76.0); PLATELET 107 x1000/uL (130-400); RED BLOOD CELL COUNT 4.25 mill/uL (4.2-5.4); RED CELL DISTRIBUTION WIDTH 25.3 % (11.6-14.6); WHITE BLOOD COUNT 7.6 x1000/uL (4.5-11.0)
[2025-03-11 21:53] LABS: ADD RBC MORPHOLOGY YES; DIFFERENTIAL COMMENT 1
[2025-03-11 21:59] LABS: CHLORIDE 98 mEq/L (98-107); POTASSIUM 3.1 mEq/L (3.5-5.1); SODIUM 138 mEq/L (136-145)
[2025-03-11 22:00] LABS: CALCIUM 9.2 mg/dL (8.7-10.4); CARBON DIOXIDE 31 mEq/L (21-32); INR 1.2; PROTHROMBIN TIME 12.6 sec (9.6-11.0)
[2025-03-11 22:05] LABS: GLUCOSE 104 mg/dL (70-105); UREA NITROGEN BLOOD 19 mg/dL (9-23)
[2025-03-11 22:13] LABS: ANISOCYTOSIS 2+; CREATININE 7.1 mg/dL (0.6-1.0); PLATELET ESTIMATE DECREASED
[2025-03-11 22:14] LABS: TROPONIN I HIGH SENSITIVITY 66 ng/L (3.0-34)
[2025-03-11] MEDS ORDERED: VANCOMYCIN 1000MG/250ML 250 ML IV SCH (23:00)
[2025-03-11 23:01] VITALS: PULSE 93; RESP 20; O2SAT 94
[2025-03-11] MEDS: IPRATROPIUM/ALBUTEROL 0.5-3(2.5)MG/3ML NEB HHN ONE (23:01)
[2025-03-11] MEDS: METHYLPREDNISOLONE SOD SUCC 125MG/2ML (ACT-O-VIAL) IV SCH (23:13)
[2025-03-11] MEDS: VANCOMYCIN 1G PREMIX 200 ML IV NR (23:13)
[2025-03-11] MEDS: METOCLOPRAMIDE HCL 10MG/2ML VIAL IV ONE (23:43)
[2025-03-11] MEDS: MORPHINE SULFATE 4 MG/ML INJ (FOR IV/IM USE) IV ONE (23:44)
[2025-03-12] VITALS (7 sets, daily range): BP systolic 122–144; BP diastolic 68–87; PULSE 78–90; RESP 19–24; TEMP 35.7–36.8; O2SAT 94–99
[2025-03-12] MEDS ORDERED: MAGNESIUM/ALUMINUM HYDROXIDE/SIMETHICONE 30ML UDC PO PRN (07:30)
[2025-03-12] MEDS ORDERED: CLONIDINE 0.1MG TABLET PO PRN (07:30)
[2025-03-12] MEDS ORDERED: NALOXONE HCL 0.4MG/ML VIAL IV PRN (07:45)
[2025-03-12] MEDS: PANTOPRAZOLE SODIUM 40 MG/VIAL IV SCH (08:48)
[2025-03-12] MEDS: POTASSIUM CHLORIDE 20MEQ TABLET SR PO SCH (08:49)
[2025-03-12] MEDS: ENOXAPARIN 30MG/0.3ML SYR SUBCUT SCH (08:49)
[2025-03-12] MEDS: ACETAMINOPHEN 325MG TABLET PO PRN (09:14)
[2025-03-12] MEDS: HYDROCODONE/ACETAMINOPHEN 5/325MG TABLET PO PRN (12:41)
[2025-03-12] MEDS: DIPHENHYDRAMINE 25MG CAPSULE PO PRN (14:36)
[2025-03-12] MEDS: CEFUROXIME AXETIL 250MG TABLET PO SCH (17:06)
[2025-03-12] MEDS: FUROSEMIDE 40MG/4ML VIAL IVP SCH (17:06)
[2025-03-12 17:24] LABS: CLARITY URINE CLOUDY (CLEAR); COLOR URINE DARK YELLOW (YELLOW); GLUCOSE URINE NEGATIVE (NEGATIVE); KETONES URINE TRACE (NEGATIVE); LEUKOCYTE ESTERASE URINE 1+ (NEGATIVE); NITRITE URINE NEGATIVE (NEGATIVE); OCCULT BLOOD URINE TRACE (NEGATIVE); PROTEIN URINE 4+ (NEGATIVE); SPECIFIC GRAVITY URINE 1.025 (1.005-1.030)
[2025-03-12 17:36] LABS: *AMPHETAMINES SCREEN URINE NEGATIVE (NEGATIVE); *BENZODIAZEPINES SCREEN URINE NEGATIVE (NEGATIVE)
[2025-03-12 17:37] LABS: *BARBITURATES SCREEN URINE NEGATIVE (NEGATIVE); *COCAINE SCREEN URINE NEGATIVE (NEGATIVE); CANNABINOID URINE SCREEN NEGATIVE (NEGATIVE); ECSTASY MDMA SCREEN URINE NEGATIVE (NEGATIVE); METHADONE URINE SCREEN NEGATIVE (NEGATIVE); OPIATES URINE SCREEN PRESUMPTIVE POSITIVE (NEGATIVE); PHENCYCLIDINE URINE SCREEN NEGATIVE (NEGATIVE)
[2025-03-12 17:46] LABS: HEPATITIS B SURFACE ANTIGEN NEGATIVE (Negative)
[2025-03-12 17:48] LABS: TROPONIN I HIGH SENSITIVITY 40 ng/L (3.0-34)
[2025-03-12 18:07] LABS: HEPATITIS A AB IGM NEGATIVE (Negative); HEPATITIS B CORE AB IGM NEGATIVE (Negative)
[2025-03-12 18:08] LABS: HEPATITIS C AB REACTIVE (Pos) (Negative)
[2025-03-12 18:15] LABS: BACTERIA URINE 4+; RBC URINE 0-2 /hpf (0-2); SQUAMOUS EPITHELIAL CELL URINE 1+ /lpf (RARE/1+)
[2025-03-12 18:16] LABS: AMORPHOUS SEDIMENT URINE 1+ /lpf
[2025-03-12] MEDS ORDERED: ZOLPIDEM TARTRATE 5MG TABLET PO PRN (21:00)
[2025-03-12] MEDS: METHYLPREDNISOLONE SOD SUCC 40MG/ML (ACT-O-VIAL) IV SCH (21:14)
[2025-03-12] MEDS: VANCOMYCIN 500MG PREMIX 100 ML IV SCH (21:14)
[2025-03-13] VITALS (12 sets, daily range): BP systolic 120–135; BP diastolic 72–87; PULSE 84–96; RESP 17–23; TEMP 36.114–36.7; O2SAT 94–100
[2025-03-13 00:18] LABS: TROPONIN I HIGH SENSITIVITY 38 ng/L (3.0-34)
[2025-03-13 02:55] LABS: HEMATOCRIT. 36.8 % (36.0-48.0); HEMOGLOBIN. 11.6 g/dL (12.0-16.0); MEAN CORPUSCULAR HEMOGLOBIN 26.1 pg (28.0-32.0); MEAN CORPUSCULAR HGB CONC 31.5 g/dL (31.0-37.0); MEAN CORPUSCULAR VOLUME 82.7 fL (81.0-99.0); MEAN PLATELET VOLUME 8.2 fl (7.4-10.4); PLATELET 123 x1000/uL (130-400); RED BLOOD CELL COUNT 4.46 mill/uL (4.2-5.4); RED CELL DISTRIBUTION WIDTH 24.7 % (11.6-14.6); WHITE BLOOD COUNT 9.6 x1000/uL (4.5-11.0)
[2025-03-13 03:00] LABS: DIFFERENTIAL COMMENT 1
[2025-03-13 03:12] LABS: POTASSIUM 3.1 mEq/L (3.5-5.1)
[2025-03-13 03:13] LABS: CALCIUM 9.7 mg/dL (8.7-10.4)
[2025-03-13] MEDS ORDERED: [UNRECOGNIZED DRUG - CODE] PO (12:35)
[2025-03-13] MEDS ORDERED: DOXY100C5 MT (12:35)
[2025-03-13 15:29] LABS: ANISOCYTOSIS 2+; PLATELET ESTIMATE NORMAL
== END 2025-03-13 15:33 | disposition home health service (06) | DRG 189 ==
LOC: ER 20:48 → 3WST 03-12 01:18 → EDBEDREQTM 03-12 01:20 → EDBEDREQ 03-12 01:20 → ENRESERV 03-12 02:04
PROVIDERS: ADMIT Internal Medicine; ATTEND Internal Medicine
PROC: 5A1D70Z Performance of Urinary Filtration, Intermittent, Less than 6 Hours Per Day (ICD-10-PCS; principal; 2025-03-12)
DX: J96.01 Acute respiratory failure with hypoxia (principal); I50.23 Acute on chronic systolic (congestive) heart failure; N18.6 End stage renal disease; I13.2 Hypertensive heart and chronic kidney disease with heart failure and with stage 5 chronic kidney disease, or end stage renal disease; L03.317 Cellulitis of buttock; L02.31 Cutaneous abscess of buttock; E87.6 Hypokalemia; K57.30 Diverticulosis of large intestine without perforation or abscess without bleeding; J44.89 Other specified chronic obstructive pulmonary disease; E03.9 Hypothyroidism, unspecified; E78.5 Hyperlipidemia, unspecified; H40.9 Unspecified glaucoma; D69.6 Thrombocytopenia, unspecified; Z99.2 Dependence on renal dialysis; Z87.891 Personal history of nicotine dependence; Z88.0 Allergy status to penicillin; Z88.2 Allergy status to sulfonamides
CPT/HCPCS: 36415; 71045; 74176; 80048; 80305; 81003; 83880; 84484; 85025; 86705; 86709; 87070; 87077; 87186; 87340; 90935; 93005; 94070; 94640; 94664; 96365; 96375; 98960; 99285; A4606; J1650; J1940; J2270; J2470; J2765; J2919; J3370; Q0163

== ENCOUNTER 2025-06-29 17:27 | Inpatient (IN) | payer MEDICARE, MEDICAID ==
[~2025-06-29] VITALS: Ht 152.4 cm; Wt 62.1 kg
[~2025-06-29 17:27] MED LIST changes: -CARV12.545 PO; +COR3 PO; +EMPA10TA PO; +FAMO20TA8 PO; -LATA2.5D14 EACHEYE; +LATA2.5D7 EACHEYE; -TAPI60CR TP
[2025-06-29] MEDS ORDERED: SODIUM CHLORIDE 0.9% 1,000 ML IV ONE (18:45)
[2025-06-29] MEDS: MORPHINE SULFATE 4 MG/ML INJ (FOR IV/IM USE) IV ONE (19:13)
[2025-06-29] MEDS: FUROSEMIDE 100MG/10ML VIAL IVP ONE (19:13)
[2025-06-29 19:27] LABS: BASOPHILS % 1.0 % (0.0-2.0); EOSINOPHILS % 2.0 % (0.0-5.0); HEMATOCRIT. 39.6 % (36.0-48.0); HEMOGLOBIN. 12.2 g/dL (12.0-16.0); LYMPHOCYTES % 21.2 % (20.0-50.0); MEAN PLATELET VOLUME 10.0 fl (7.4-10.4); MONOCYTES % 12.8 % (2.0-8.0); NEUTROPHILS % 63.0 % (40.0-76.0); PLATELET 134 x1000/uL (130-400); RED BLOOD CELL COUNT 4.24 mill/uL (4.2-5.4); RED CELL DISTRIBUTION WIDTH 20.0 % (11.6-14.6)
[2025-06-29 20:21] LABS: UREA NITROGEN BLOOD 28 mg/dL (9-23)
[2025-06-29 20:23] LABS: INR 1.1
[2025-06-29 20:54] LABS: CREATININE 6.7 mg/dL (0.6-1.0)
[2025-06-29 20:55] LABS: TROPONIN I HIGH SENSITIVITY 115 ng/L (3.0-34)
[2025-06-29] MEDS ORDERED: LORAZEPAM 2MG/ML UD SYRINGE IV PRN (23:30)
[2025-06-29] MEDS ORDERED: METOCLOPRAMIDE HCL 10MG/2ML VIAL IV PRN (23:30)
[2025-06-29] MEDS ORDERED: CLONIDINE 0.1MG TABLET PO PRN (23:30)
[2025-06-29] MEDS ORDERED: GUAIFENESIN 200MG/10ML SUGAR FREE UDC PO PRN (23:30)
[2025-06-29] MEDS ORDERED: ACETAMINOPHEN 325MG TABLET PO PRN (23:30)
[2025-06-29 23:33] VITALS: BP 131/95; PULSE 83; RESP 19; TEMP 36.696
[2025-06-30] VITALS (15 sets, daily range): BP systolic 118–138; BP diastolic 68–102; PULSE 60–116; RESP 17–24; TEMP 36.3–37.2; O2SAT 95–99
[2025-06-30] MEDS: PANTOPRAZOLE 40MG DR TABLET PO SCH (06:35)
[2025-06-30] MEDS: FUROSEMIDE 100MG/10ML VIAL IVP SCH (06:35)
[2025-06-30] MEDS ORDERED: INFLUENZA VACCINE 05/PF 0.5 ML SYRINGE IM ONE (06:45)
[2025-06-30] MEDS: IPRATROPIUM/ALBUTEROL 0.5-3(2.5)MG/3ML NEB HHN PRN (06:50)
[2025-06-30 07:06] LABS: CREATINE KINASE MB FRACTION 5.1 ng/mL (0.5-3.6)
[2025-06-30 07:11] LABS: TROPONIN I HIGH SENSITIVITY 121.0 ng/L (3.0-34)
[2025-06-30] MEDS: AZITHROMYCIN 500MG/250ML 250 ML IV SCH (08:00)
[2025-06-30] MEDS: NITROGLYCERIN 0.4MG TABLET SL SL PRN (08:43)
[2025-06-30] MEDS: MORPHINE SULFATE 10 MG/ML INJ (NOT FOR IM USE) IV NR (08:56)
[2025-06-30] MEDS: ENOXAPARIN 30MG/0.3ML SYR SUBCUT SCH (08:57)
[2025-06-30 19:04] LABS: BASOPHILS % 1.0 % (0.0-2.0); EOSINOPHILS % 0.8 % (0.0-5.0); HEMATOCRIT. 43.3 % (36.0-48.0); HEMOGLOBIN. 13.4 g/dL (12.0-16.0); LYMPHOCYTES % 26.7 % (20.0-50.0); MEAN PLATELET VOLUME 8.7 fl (7.4-10.4); MONOCYTES % 14.2 % (2.0-8.0); NEUTROPHILS % 57.3 % (40.0-76.0); PLATELET 89 x1000/uL (130-400); RED BLOOD CELL COUNT 4.66 mill/uL (4.2-5.4); RED CELL DISTRIBUTION WIDTH 19.9 % (11.6-14.6)
[2025-06-30 19:28] LABS: CREATINE KINASE MB FRACTION 5.0 ng/mL (0.5-3.6); UREA NITROGEN BLOOD 24 mg/dL (9-23)
[2025-06-30 19:29] LABS: ASPARTATE AMINOTRANSFERASE 43 IU/L (<34)
[2025-06-30 19:30] LABS: BILIRUBIN TOTAL 1.1 mg/dL (0.1-1.0); PHOSPHORUS 4.6 mg/dL (2.5-4.9); PROTEIN TOTAL 6.8 g/dL (6.0-8.3)
[2025-06-30 19:32] LABS: T4 FREE 1.97 ng/dL (0.89-1.76)
[2025-06-30 20:04] LABS: HEPATITIS A AB IGM NEGATIVE (Negative)
[2025-06-30 20:05] LABS: HEPATITIS B CORE AB IGM NEGATIVE (Negative)
[2025-06-30 20:10] LABS: CREATININE 6.3 mg/dL (0.6-1.0)
[2025-06-30 20:16] LABS: TROPONIN I HIGH SENSITIVITY 97.0 ng/L (3.0-34)
[2025-06-30 20:24] LABS: HEPATITIS C AB REACTIVE (Pos) (Negative)
[2025-06-30] MEDS: ACETAMINOPHEN 325MG TABLET PO PRN (22:08)
[2025-07-01] VITALS (8 sets, daily range): BP systolic 118–165; BP diastolic 67–96; PULSE 70–101; RESP 18–24; TEMP 36.44736–37.2; O2SAT 97–100
[2025-07-01] MEDS: HYDROCODONE/ACETAMINOPHEN 5/325MG TABLET PO NR (02:51)
[2025-07-01] MEDS ORDERED: FURO40TA5 MT (09:30)
[2025-07-01 14:05] LABS: BASOPHILS % 0.7 % (0.0-2.0); EOSINOPHILS % 2.4 % (0.0-5.0); HEMATOCRIT. 43.9 % (36.0-48.0); HEMOGLOBIN. 13.5 g/dL (12.0-16.0); LYMPHOCYTES % 28.9 % (20.0-50.0); MEAN PLATELET VOLUME 8.6 fl (7.4-10.4); MONOCYTES % 14.1 % (2.0-8.0); NEUTROPHILS % 53.9 % (40.0-76.0); PLATELET 97 x1000/uL (130-400); RED BLOOD CELL COUNT 4.73 mill/uL (4.2-5.4); RED CELL DISTRIBUTION WIDTH 19.9 % (11.6-14.6)
[2025-07-01 14:14] LABS: UREA NITROGEN BLOOD 34.0 mg/dL (9-23)
[2025-07-01 14:17] LABS: CREATININE 7.5 mg/dL (0.6-1.0)
[2025-07-01] MEDS: FUROSEMIDE 40MG TABLET PO SCH (18:31)
[2025-07-02] VITALS (14 sets, daily range): BP systolic 114–146; BP diastolic 74–97; PULSE 96–111; RESP 15–21; TEMP 35.7–36.6; O2SAT 96–99
[2025-07-02] MEDS ORDERED: HYDROCODONE/ACETAMINOPHEN 5/325MG TABLET PO NR (02:45)
[2025-07-02] MEDS: HYDROCODONE/ACETAMINOPHEN 5/325MG TABLET PO SCH ×3 (02:46→23:20)
[2025-07-02 06:39] LABS: BASOPHILS % 0.6 % (0.0-2.0); EOSINOPHILS % 3.1 % (0.0-5.0); HEMATOCRIT. 40.9 % (36.0-48.0); HEMOGLOBIN. 12.6 g/dL (12.0-16.0); LYMPHOCYTES % 19.1 % (20.0-50.0); MEAN PLATELET VOLUME 8.6 fl (7.4-10.4); MONOCYTES % 10.1 % (2.0-8.0); NEUTROPHILS % 67.1 % (40.0-76.0); PLATELET 85 x1000/uL (130-400); RED BLOOD CELL COUNT 4.48 mill/uL (4.2-5.4); RED CELL DISTRIBUTION WIDTH 19.5 % (11.6-14.6)
[2025-07-02 07:23] LABS: UREA NITROGEN BLOOD 26.0 mg/dL (9-23)
[2025-07-02 08:50] LABS: CREATININE 6.0 mg/dL (0.6-1.0)
[2025-07-03] VITALS (14 sets, daily range): BP systolic 108–130; BP diastolic 78–98; PULSE 87–110; RESP 16–22; TEMP 36.22512–36.7; O2SAT 95–100
[2025-07-03] MEDS: MELATONIN 3MG TABLET PO PRN (02:25)
[2025-07-03 06:26] LABS: UREA NITROGEN BLOOD 36.0 mg/dL (9-23)
[2025-07-03 06:37] LABS: CREATININE 7.3 mg/dL (0.6-1.0)
[2025-07-03 06:44] LABS: BASOPHILS % 0.8 % (0.0-2.0); EOSINOPHILS % 3.1 % (0.0-5.0); HEMATOCRIT. 44.2 % (36.0-48.0); HEMOGLOBIN. 13.8 g/dL (12.0-16.0); LYMPHOCYTES % 25.6 % (20.0-50.0); MEAN PLATELET VOLUME 8.7 fl (7.4-10.4); MONOCYTES % 8.6 % (2.0-8.0); NEUTROPHILS % 61.9 % (40.0-76.0); PLATELET 95 x1000/uL (130-400); RED BLOOD CELL COUNT 4.83 mill/uL (4.2-5.4); RED CELL DISTRIBUTION WIDTH 19.9 % (11.6-14.6)
[2025-07-03] MEDS: LOSARTAN 25 MG TABLET PO SCH (14:20)
[2025-07-03] MEDS: EMPAGLIFLOZIN 10MG TABLET PO SCH (14:20)
[2025-07-08] MEDS ORDERED: ALBU18HF2 IH (10:30)
== END 2025-07-03 17:59 | disposition home or self-care (01) | DRG 871 ==
LOC: ER 17:27 → 5WST 21:40 → EDBEDREQ 21:43 → EDBEDREQTM 21:43 → ENRESERV 22:36
PROVIDERS: ADMIT Internal Medicine; ATTEND Internal Medicine
PROC: 5A1D70Z Performance of Urinary Filtration, Intermittent, Less than 6 Hours Per Day (ICD-10-PCS; principal; 2025-06-30)
PROC: 5A1D70Z Performance of Urinary Filtration, Intermittent, Less than 6 Hours Per Day (ICD-10-PCS; 2025-07-01)
PROC: 5A1D70Z Performance of Urinary Filtration, Intermittent, Less than 6 Hours Per Day (ICD-10-PCS; 2025-07-03)
DX: A41.9 Sepsis, unspecified organism (principal); I21.A1 Myocardial infarction type 2; I50.23 Acute on chronic systolic (congestive) heart failure; J96.21 Acute and chronic respiratory failure with hypoxia; N18.6 End stage renal disease; J18.9 Pneumonia, unspecified organism; I13.2 Hypertensive heart and chronic kidney disease with heart failure and with stage 5 chronic kidney disease, or end stage renal disease; K92.2 Gastrointestinal hemorrhage, unspecified; I42.9 Cardiomyopathy, unspecified; I24.9 Acute ischemic heart disease, unspecified; Z66 Do not resuscitate; J44.89 Other specified chronic obstructive pulmonary disease; R55 Syncope and collapse; I27.20 Pulmonary hypertension, unspecified; E78.5 Hyperlipidemia, unspecified; F17.200 Nicotine dependence, unspecified, uncomplicated; Z79.84 Long term (current) use of oral hypoglycemic drugs; Z99.2 Dependence on renal dialysis; Z88.2 Allergy status to sulfonamides; Z79.899 Other long term (current) drug therapy; Z88.0 Allergy status to penicillin; Z88.8 Allergy status to other drugs, medicaments and biological substances
CPT/HCPCS: 36415; 71045; 80048; 80053; 82550; 82553; 83735; 83880; 84100; 84145; 84439; 84443; 84484; 85025; 85379; 86705; 86709; 87340; 90935; 93005; 93970; 94070; 94640; 94664; 97161; 97166; 97535; 98960; 99285; A4606; J0456; J1650; J1938; J2270; J7030

== ENCOUNTER 2025-07-16 09:46 | Inpatient (IN) | payer MEDICARE, MEDICAID ==
[2025-07-16] VITALS (9 sets, daily range): BP systolic 128–141; BP diastolic 93–115; PULSE 93–105; RESP 20–44; TEMP 36.3–36.55848; O2SAT 93–100
[~2025-07-16] VITALS: Ht 160 cm; Wt 47.6 kg
[~2025-07-16 09:46] MED LIST changes: +ALBU18HF2 IH; -CRES10 PO; -FURO20TA4 PO; +FURO40TA5 MT
[2025-07-16 10:37] LABS: BASOPHILS % 0.8 % (0.0-2.0); EOSINOPHILS % 5.3 % (0.0-5.0); HEMATOCRIT. 36.6 % (36.0-48.0); HEMOGLOBIN. 11.4 g/dL (12.0-16.0); LYMPHOCYTES % 18.9 % (20.0-50.0); MEAN PLATELET VOLUME 7.9 fl (7.4-10.4); MONOCYTES % 8.7 % (2.0-8.0); NEUTROPHILS % 66.3 % (40.0-76.0); PLATELET 190 x1000/uL (130-400); RED BLOOD CELL COUNT 3.92 mill/uL (4.2-5.4); RED CELL DISTRIBUTION WIDTH 19.7 % (11.6-14.6)
[2025-07-16 10:47] LABS: UREA NITROGEN BLOOD 54 mg/dL (9-23)
[2025-07-16 10:49] LABS: ASPARTATE AMINOTRANSFERASE 20 IU/L (<34); BILIRUBIN DIRECT 0.3 mg/dL (<=3.0); BILIRUBIN TOTAL 0.6 mg/dL (0.1-1.0); PROTEIN TOTAL 6.9 g/dL (6.0-8.3)
[2025-07-16 10:53] LABS: CREATININE 11.1 mg/dL (0.6-1.0); TROPONIN I HIGH SENSITIVITY 253 ng/L (3.0-34)
[2025-07-16 11:58] LABS: INR 1.1
[2025-07-16] MEDS ORDERED: LIDOCAINE HCL 1% 10 MG/ML 10ML VIAL ONE (12:50)
[2025-07-16] MEDS: NITROGLYCERIN 0.1MG/HR PATCH TOP ONE (13:18)
[2025-07-16] MEDS ORDERED: HYDRALAZINE 20MG/ML VIAL IV PRN (13:45)
[2025-07-16] MEDS ORDERED: LOPERAMIDE HCL 2MG CAPSULE PO PRN (13:45)
[2025-07-16 15:19] LABS: HEPATITIS A AB IGM NEGATIVE (Negative)
[2025-07-16 15:20] LABS: HEPATITIS B CORE AB IGM NEGATIVE (Negative)
[2025-07-16 15:43] LABS: HEPATITIS C AB REACTIVE (Pos) (Negative)
[2025-07-16] MEDS: FUROSEMIDE 40MG/4ML VIAL IVP SCH (15:56)
[2025-07-16] MEDS: ENOXAPARIN 30MG/0.3ML SYR SUBCUT SCH (15:57)
[2025-07-16] MEDS: CALCIUM ACETATE 667MG CAPSULE PO SCH (18:09)
[2025-07-16] MEDS: HYDROCODONE/ACETAMINOPHEN 5/325MG TABLET PO PRN (18:54)
[2025-07-16] MEDS: ACETAMINOPHEN 325MG TABLET PO PRN (22:23)
[2025-07-17] VITALS (23 sets, daily range): BP systolic 116–141; BP diastolic 86–114; PULSE 83–109; RESP 13–38; TEMP 36.1–36.83628; O2SAT 94–100
[2025-07-17 01:50] LABS: CREATINE KINASE MB FRACTION 4.9 ng/mL (0.5-3.6)
[2025-07-17 01:55] LABS: TROPONIN I HIGH SENSITIVITY 334 ng/L (3.0-34)
[2025-07-17] MEDS: LEVOTHYROXINE SODIUM 125MCG TABLET PO SCH (06:48)
[2025-07-17] MEDS: FOLIC ACID/VITAMIN B COMP W-C TABLET PO SCH (08:47)
[2025-07-17] MEDS: PANTOPRAZOLE SODIUM 40 MG/VIAL IV SCH (08:47)
[2025-07-17] MEDS: EMPAGLIFLOZIN 10MG TABLET PO SCH (08:47)
[2025-07-17] MEDS: AMLODIPINE 2.5MG TABLET PO SCH (08:47)
[2025-07-17] MEDS: FUROSEMIDE 40MG/4ML VIAL IVP SCH (08:47)
[2025-07-17] MEDS ORDERED: LOSARTAN 50 MG TABLET PO SCH (09:00)
[2025-07-17 12:04] LABS: BASOPHILS % 0.9 % (0.0-2.0); EOSINOPHILS % 3.7 % (0.0-5.0); HEMATOCRIT. 37.1 % (36.0-48.0); HEMOGLOBIN. 11.6 g/dL (12.0-16.0); LYMPHOCYTES % 18.5 % (20.0-50.0); MEAN PLATELET VOLUME 8.2 fl (7.4-10.4); MONOCYTES % 14.2 % (2.0-8.0); NEUTROPHILS % 62.7 % (40.0-76.0); PLATELET 163 x1000/uL (130-400); RED BLOOD CELL COUNT 3.98 mill/uL (4.2-5.4); RED CELL DISTRIBUTION WIDTH 19.7 % (11.6-14.6)
[2025-07-17 12:55] LABS: UREA NITROGEN BLOOD 34 mg/dL (9-23)
[2025-07-17 12:57] LABS: PHOSPHORUS 4.6 mg/dL (2.5-4.9)
[2025-07-17 13:01] LABS: T4 FREE 1.44 ng/dL (0.89-1.76)
[2025-07-17 13:21] LABS: CREATININE 7.9 mg/dL (0.6-1.0)
[2025-07-17 13:34] LABS: *AMPHETAMINES SCREEN URINE NEGATIVE (NEGATIVE); *BARBITURATES SCREEN URINE NEGATIVE (NEGATIVE); *BENZODIAZEPINES SCREEN URINE NEGATIVE (NEGATIVE); *COCAINE SCREEN URINE NEGATIVE (NEGATIVE); CANNABINOID URINE SCREEN PRESUMPTIVE POSITIVE (NEGATIVE); METHADONE URINE SCREEN NEGATIVE (NEGATIVE); OPIATES URINE SCREEN PRESUMPTIVE POSITIVE (NEGATIVE); PHENCYCLIDINE URINE SCREEN NEGATIVE (NEGATIVE)
[2025-07-17 13:35] LABS: ECSTASY MDMA SCREEN URINE NEGATIVE (NEGATIVE)
[2025-07-17 18:48] LABS: TROPONIN I HIGH SENSITIVITY 246 ng/L (3.0-34)
[2025-07-18] VITALS (23 sets, daily range): BP systolic 110–153; BP diastolic 74–124; PULSE 83–108; RESP 14–48; TEMP 36.44736–36.9; O2SAT 94–100
[2025-07-18] MEDS: FUROSEMIDE 40MG/4ML VIAL IVP SCH (08:46)
[2025-07-18] MEDS: IPRATROPIUM/ALBUTEROL 0.5-3(2.5)MG/3ML NEB HHN PRN (21:43)
[2025-07-18 22:48] LABS: UREA NITROGEN BLOOD 32.0 mg/dL (9-23)
[2025-07-18 22:54] LABS: CREATININE 7.5 mg/dL (0.6-1.0)
[2025-07-19] VITALS (17 sets, daily range): BP systolic 118–138; BP diastolic 77–109; PULSE 82–102; RESP 12–34; TEMP 36.3–36.7; O2SAT 92–100
[2025-07-20] VITALS (15 sets, daily range): BP systolic 120–141; BP diastolic 87–109; PULSE 91–105; RESP 14–43; TEMP 36.3–36.7; O2SAT 80–100
[2025-07-20 12:38] LABS: BG BASE EXCESS -1.7 mmol/L (-2.0-3.0); BG CARBOXYHEMOGLOBIN 1.3 % (0.5-1.5); BG DEOXYHEMOGLOBIN 2.6 % (0.0-5.0); BG FLOW(L/min) 4.00 L/min; BG FRACTION INSPIRED OXYGEN 36; BG HCO3 ACT 20.3 mmol/L (21.0-28.0); BG METHEMOGLOBIN 0.0 % (0.5-1.5); BG OXYGEN SATURATION 97.4 % (94.0-98.0); BG OXYHEMOGLOBIN 96.1 % (94.0-98.0); BG PCO2 27.3 mmHg (32.0-45.0); BG PH 7.490 (7.350-7.450); BG PO2 90.9 mmHg (83.0-108.0); BG SAMPLE SITE RIGHT RADIAL; BG TOTAL HEMOGLOBIN 12.9 g/dL (12.0-16.0); BG VENT MODE NASAL CANNULA
[2025-07-21] VITALS (24 sets, daily range): BP systolic 113–149; BP diastolic 72–113; PULSE 88–109; RESP 8–51; TEMP 36.3–36.6; O2SAT 94–100
[2025-07-21] MEDS: FAMOTIDINE 20MG TABLET PO SCH (13:05)
[2025-07-21] MEDS: IPRATROPIUM/ALBUTEROL 0.5-3(2.5)MG/3ML NEB HHN SCH (20:37)
[2025-07-21] MEDS: PREDNISONE 20MG TABLET PO SCH (22:36)
[2025-07-21] MEDS: HYDROCODONE/ACETAMINOPHEN 5/325MG TABLET PO PRN (23:01)
[2025-07-22] VITALS (17 sets, daily range): BP systolic 105–138; BP diastolic 78–104; PULSE 93–115; RESP 18–53; TEMP 35–36.7; O2SAT 93–100
[2025-07-22] MEDS: PREDNISONE 20MG TABLET PO SCH ×3 (04:24→21:01)
[2025-07-22] MEDS ORDERED: CLINDAMYCIN 600 MG in DEXTROSE 5% WATER 50 ML IV ONE (09:00)
[2025-07-22] MEDS ORDERED: CLINDAMYCIN 600MG PREMIX 50 ML IV NR (10:00)
[2025-07-22] MEDS ORDERED: ALTEPLASE 2MG/VIAL ITC NR (10:00)
[2025-07-22] MEDS: DIPHENHYDRAMINE 50MG CAPSULE PO SCH (10:35)
[2025-07-22] MEDS: ONDANSETRON HCL 4MG/2ML INJ IV PRN (12:35)
[2025-07-22] MEDS: GUAIFENESIN 600MG ER TABLET PO SCH (15:00)
[2025-07-22] MEDS ORDERED: ALPRAZOLAM 0.25 MG TABLET PO PRN (15:00)
[2025-07-22] MEDS: GUAIFENESIN 200MG/10ML SUGAR FREE UDC PO PRN (15:03)
[2025-07-23] VITALS (25 sets, daily range): BP systolic 97–127; BP diastolic 58–96; PULSE 78–105; RESP 15–24; TEMP 36.6–37.2; O2SAT 94–100
[2025-07-23] MEDS: PREDNISONE 20MG TABLET PO SCH ×2 (03:18→09:18)
[2025-07-23 07:25] LABS: UREA NITROGEN BLOOD 47.0 mg/dL (9-23)
[2025-07-23 07:36] LABS: CREATININE 9.0 mg/dL (0.6-1.0)
[2025-07-23] MEDS ORDERED: CLINDAMYCIN 600MG PREMIX 50 ML IV NR (08:00)
[2025-07-23] MEDS: DIPHENHYDRAMINE 50MG CAPSULE PO SCH (08:00)
[2025-07-23] MEDS ORDERED: ALTEPLASE 2MG/VIAL ITC NR (08:00)
[2025-07-23] MEDS ORDERED: NALOXONE HCL 0.4MG/ML VIAL IV PRN (08:00)
[2025-07-24] VITALS (24 sets, daily range): BP systolic 92–127; BP diastolic 64–100; PULSE 92–109; RESP 12–34; TEMP 36.16956–37.1; O2SAT 77–100
[2025-07-25] VITALS (20 sets, daily range): BP systolic 100–132; BP diastolic 81–104; PULSE 90–111; RESP 18–40; TEMP 36.3–36.9; O2SAT 93–100
[2025-07-25] MEDS: SIMETHICONE 80MG TABLET CHEW PO NR (06:40)
[2025-07-25] MEDS: SIMETHICONE 80MG TABLET CHEW PO PRN (16:25)
[2025-07-26] VITALS (17 sets, daily range): BP systolic 110–137; BP diastolic 68–118; PULSE 97–112; RESP 17–43; TEMP 36.2–37.2; O2SAT 92–100
[2025-07-27] VITALS (14 sets, daily range): BP systolic 118–150; BP diastolic 81–105; PULSE 94–112; RESP 18–49; TEMP 36.4–37.1; O2SAT 96–100
[2025-07-27] MEDS: IPRATROPIUM/ALBUTEROL 0.5-3(2.5)MG/3ML NEB HHN PRN (04:06)
[2025-07-27] MEDS: DOCUSATE SODIUM 100MG CAPSULE PO PRN (09:49)
[2025-07-27] MEDS: SODIUM ZIRCONIUM CYCLOSILICATE 10GM/PACKET PO SCH (13:34)
[2025-07-27] MEDS: SODIUM BICARBONATE 8.4% 50MEQ/50ML SYR IV SCH (13:34)
[2025-07-27] MEDS: DEXTROSE 50% WATER 50ML SYRINGE IV SCH (13:34)
[2025-07-27] MEDS: INSULIN REGULAR (HUMULIN R) 1000UNITS/10ML VIAL IV SCH (13:35)
[2025-07-27] MEDS ORDERED: ALBUTEROL (0.083%) 2.5MG/3ML NEB HHN SCH (14:00)
[2025-07-27] MEDS: CALCIUM GLUCONATE 100MG/ML 10ML VIAL IV SCH (15:00)
[2025-07-27] MEDS: HYDROCODONE/ACETAMINOPHEN 5/325MG TABLET PO PRN (17:25)
[2025-07-28] VITALS (18 sets, daily range): BP systolic 110–133; BP diastolic 70–93; PULSE 94–105; RESP 14–38; TEMP 36.4–36.8; O2SAT 97–100
[2025-07-28 10:52] LABS: BASOPHILS % 0.7 % (0.0-2.0); EOSINOPHILS % 2.3 % (0.0-5.0); HEMATOCRIT. 40.3 % (36.0-48.0); HEMOGLOBIN. 12.5 g/dL (12.0-16.0); LYMPHOCYTES % 17.7 % (20.0-50.0); MEAN PLATELET VOLUME 9.0 fl (7.4-10.4); MONOCYTES % 10.3 % (2.0-8.0); NEUTROPHILS % 69.0 % (40.0-76.0); PLATELET 155 x1000/uL (130-400); RED BLOOD CELL COUNT 4.39 mill/uL (4.2-5.4); RED CELL DISTRIBUTION WIDTH 19.8 % (11.6-14.6)
[2025-07-28 11:12] LABS: UREA NITROGEN BLOOD 42.0 mg/dL (9-23)
[2025-07-28] MEDS ORDERED: NALOXONE HCL 0.4MG/ML VIAL IV PRN (11:45)
[2025-07-28] MEDS ORDERED: IPRATROPIUM/ALBUTEROL 0.5-3(2.5)MG/3ML NEB HHN PRN (11:45)
[2025-07-28 11:47] LABS: CREATININE 7.7 mg/dL (0.6-1.0)
[2025-07-28 12:12] LABS: TROPONIN I HIGH SENSITIVITY 108 ng/L (3.0-34)
[2025-07-28] MEDS: IPRATROPIUM BROMIDE (0.02%) 0.5MG/2.5ML NEB HHN SCH (18:13)
[2025-07-28] MEDS: PREDNISONE 20MG TABLET PO NR (20:37)
[2025-07-29] VITALS (10 sets, daily range): BP systolic 121–140; BP diastolic 51–97; PULSE 93–105; RESP 17–38; TEMP 35.5–36.2; O2SAT 94–100
[2025-07-29] MEDS: PREDNISONE 20MG TABLET PO SCH ×2 (02:00→08:39)
[2025-07-29] MEDS: METOCLOPRAMIDE HCL 10MG/2ML VIAL IV NR (04:31)
[2025-07-29 05:09] LABS: PLATELET 184 x1000/uL (130-400); RED BLOOD CELL COUNT 4.60 mill/uL (4.2-5.4); RED CELL DISTRIBUTION WIDTH 20.4 % (11.6-14.6)
[2025-07-29 05:54] LABS: UREA NITROGEN BLOOD 30.0 mg/dL (9-23)
[2025-07-29 06:11] LABS: CREATININE 6.7 mg/dL (0.6-1.0)
[2025-07-29] MEDS: DIPHENHYDRAMINE 50MG CAPSULE PO NR (08:24)
[2025-07-29] MEDS: SODIUM ZIRCONIUM CYCLOSILICATE 10GM/PACKET PO NR (10:40)
[2025-07-30] VITALS (16 sets, daily range): BP systolic 99–174; BP diastolic 68–89; PULSE 91–100; RESP 13–25; TEMP 36.114–36.7; O2SAT 94–100
[2025-07-31] VITALS (15 sets, daily range): BP systolic 90–152; BP diastolic 68–99; PULSE 72–101; RESP 16–20; TEMP 36.2–36.6696; O2SAT 96–100
[2025-07-31] MEDS: ACETAMINOPHEN 650MG/20.3ML UDC PO PRN (04:33)
[2025-08-01] VITALS (17 sets, daily range): BP systolic 101–134; BP diastolic 54–99; PULSE 86–98; RESP 14–19; TEMP 36.1–36.6; O2SAT 97–100
[2025-08-01] MEDS: MELATONIN 3MG TABLET PO SCH (00:07)
[2025-08-01] MEDS: PREDNISONE 20MG TABLET PO NR (20:00)
[2025-08-01] MEDS: ACETAMINOPHEN 325MG TABLET PO PRN (22:05)
[2025-08-02] VITALS (18 sets, daily range): BP systolic 120–144; BP diastolic 70–108; PULSE 72–115; RESP 15–36; TEMP 36.4–36.6; O2SAT 96–100
[2025-08-02] MEDS: PREDNISONE 20MG TABLET PO NR ×2 (01:38→08:00)
[2025-08-02 06:48] LABS: PLATELET 159 x1000/uL (130-400); RED BLOOD CELL COUNT 4.80 mill/uL (4.2-5.4); RED CELL DISTRIBUTION WIDTH 20.5 % (11.6-14.6)
[2025-08-02 07:10] LABS: UREA NITROGEN BLOOD 32.0 mg/dL (9-23)
[2025-08-02 07:33] LABS: CREATININE 6.3 mg/dL (0.6-1.0)
[2025-08-02] MEDS: FUROSEMIDE 100MG/10ML VIAL IVP SCH (09:14)
[2025-08-02] MEDS ORDERED: CLINDAMYCIN 600 MG in DEXTROSE 5% WATER 50 ML IV ONE (09:15)
[2025-08-02] MEDS: DIPHENHYDRAMINE 50MG CAPSULE PO NR (09:33)
[2025-08-02] MEDS ORDERED: LIDOCAINE HCL 1% 10 MG/ML 10ML VIAL ONE (11:35)
[2025-08-02] MEDS: CLINDAMYCIN 600MG PREMIX 50 ML IV NR (12:20)
[2025-08-02] MEDS: FENTANYL CITRATE/PF 50MCG/ML 2ML VIAL IV ONE (12:25)
[2025-08-02] MEDS ORDERED: FENTANYL CITRATE/PF 50MCG/ML 2ML VIAL ONE (12:26)
[2025-08-02] MEDS: ZOLPIDEM TARTRATE 5MG TABLET PO PRN (20:45)
[2025-08-02] MEDS: HYDROCODONE/ACETAMINOPHEN 5/325MG TABLET PO PRN (20:45)
[2025-08-03] VITALS (16 sets, daily range): BP systolic 95–132; BP diastolic 51–87; PULSE 78–97; RESP 14–32; TEMP 36.2–37.1; O2SAT 98–100
[2025-08-03] MEDS: CARVEDILOL 3.125 MG TABLET PO SCH (09:09)
[2025-08-04] VITALS (15 sets, daily range): BP systolic 101–119; BP diastolic 49–80; PULSE 75–96; RESP 14–20; TEMP 35.6–36.7; O2SAT 93–100
[2025-08-05] VITALS (10 sets, daily range): BP systolic 99–149; BP diastolic 47–80; PULSE 76–99; RESP 18–20; TEMP 36–36.3; O2SAT 96–99
[2025-08-06] VITALS (15 sets, daily range): BP systolic 96–128; BP diastolic 62–77; PULSE 77–86; RESP 17–35; TEMP 36.114–36.44736; O2SAT 96–100
[2025-08-06] MEDS: FOLIC ACID/VITAMIN B COMP W-C TABLET PO SCH (09:43)
[2025-08-06] MEDS: FUROSEMIDE 100MG/10ML VIAL IVP SCH (09:44)
[2025-08-07] VITALS: BP 119/95; PULSE 80; RESP 18; TEMP 36.5; O2SAT 97
[2025-08-07 04:00] VITALS: BP 114/81; PULSE 86; RESP 18; TEMP 36.3; O2SAT 97
[2025-08-07 09:59] VITALS: BP 135/91; PULSE 81; RESP 18; TEMP 36.1; O2SAT 95
[2025-08-07 12:00] VITALS: BP 88/52; PULSE 73; RESP 18; TEMP 36.3; O2SAT 99
[2025-08-07] MEDS ORDERED: NALOXONE HCL 0.4MG/ML VIAL IV PRN (13:15)
[2025-08-07 16:00] VITALS: BP 93/66; PULSE 67; RESP 18; TEMP 36.1; O2SAT 99
[2025-08-07 20:00] VITALS: BP 109/74; PULSE 77; RESP 18; TEMP 36.7; O2SAT 99
[2025-08-07] MEDS: HEPARIN 5000 UNITS/ML VIAL SUBCUT SCH (20:41)
[2025-08-07] MEDS: HYDROCODONE/ACETAMINOPHEN 5/325MG TABLET PO PRN (21:53)
[2025-08-08] VITALS (14 sets, daily range): BP systolic 94–123; BP diastolic 51–75; PULSE 71–83; RESP 14–19; TEMP 36–37; O2SAT 93–99
[2025-08-08] MEDS: METOPROLOL SUCCINATE 25MG ER TABLET PO SCH (09:00)
[2025-08-08] MEDS: LORATADINE 10MG TABLET PO SCH (09:58)
[2025-08-09] VITALS (12 sets, daily range): BP systolic 105–115; BP diastolic 55–80; PULSE 74–88; RESP 16–33; TEMP 36.114–37.1; O2SAT 94–100
[2025-08-09 06:53] LABS: UREA NITROGEN BLOOD 34 mg/dL (9-23)
[2025-08-09 06:56] LABS: PHOSPHORUS 4.9 mg/dL (2.5-4.9)
[2025-08-09 07:26] LABS: BASOPHILS % 0.9 % (0.0-2.0); EOSINOPHILS % 1.7 % (0.0-5.0); HEMATOCRIT. 39.7 % (36.0-48.0); HEMOGLOBIN. 12.3 g/dL (12.0-16.0); LYMPHOCYTES % 10.8 % (20.0-50.0); MEAN PLATELET VOLUME 8.7 fl (7.4-10.4); MONOCYTES % 9.2 % (2.0-8.0); NEUTROPHILS % 77.4 % (40.0-76.0); PLATELET 97 x1000/uL (130-400); RED BLOOD CELL COUNT 4.42 mill/uL (4.2-5.4); RED CELL DISTRIBUTION WIDTH 20.7 % (11.6-14.6)
[2025-08-09 07:52] LABS: CREATININE 8.0 mg/dL (0.6-1.0)
[2025-08-10] VITALS (7 sets, daily range): BP systolic 98–135; BP diastolic 62–91; PULSE 72–93; RESP 16–29; TEMP 36.2–36.6; O2SAT 95–99
[2025-08-10] MEDS ORDERED: METO-396 MT (17:12)
[2025-08-11] VITALS (15 sets, daily range): BP systolic 103–125; BP diastolic 52–90; PULSE 77–97; RESP 14–28; TEMP 36.3–37.1; O2SAT 97–100
[2025-08-11] MEDS: METOPROLOL SUCCINATE 25MG ER TABLET PO SCH (09:01)
[2025-08-12] VITALS: BP 123/84; PULSE 82; RESP 19; TEMP 36.6; O2SAT 100
[2025-08-12 04:00] VITALS: BP 124/81; PULSE 83; RESP 19; TEMP 36.6; O2SAT 100
[2025-08-12 08:00] VITALS: BP 136/82; PULSE 92; RESP 18; TEMP 35.2; O2SAT 99
[2025-08-12 12:00] VITALS: BP 128/66; PULSE 87; RESP 18; TEMP 36.5; O2SAT 99
[2025-08-12 16:00] VITALS: BP 106/76; PULSE 78; RESP 20; O2SAT 100
[2025-08-12 20:00] VITALS: BP 120/88; PULSE 82; RESP 19; TEMP 36.4; O2SAT 99
[2025-08-13] VITALS (16 sets, daily range): BP systolic 102–149; BP diastolic 61–82; PULSE 73–120; RESP 14–23; TEMP 35.7–36.7; O2SAT 98–99
[2025-08-13] MEDS ORDERED: NALOXONE HCL 0.4MG/ML VIAL IV PRN (16:15)
[2025-08-13] MEDS: HYDROCODONE/ACETAMINOPHEN 5/325MG TABLET PO PRN (17:19)
[2025-08-14 08:00] VITALS: BP 116/80; PULSE 95; RESP 18; TEMP 37.4; O2SAT 99
[2025-08-14] MEDS: IPRATROPIUM/ALBUTEROL 0.5-3(2.5)MG/3ML NEB HHN SCH (18:00)
[2025-08-14 20:00] VITALS: BP 103/58; PULSE 78; RESP 18; TEMP 35.6; O2SAT 100
[2025-08-14 21:35] VITALS: PULSE 70; RESP 18; O2SAT 97
[2025-08-15] VITALS (9 sets, daily range): BP systolic 107–127; BP diastolic 73–93; PULSE 72–83; RESP 16–22; TEMP 36.4–37.1; O2SAT 98–99
[2025-08-16] VITALS (15 sets, daily range): BP systolic 99–156; BP diastolic 56–88; PULSE 59–87; RESP 15–24; TEMP 36.2–36.7; O2SAT 98–100
[2025-08-17] VITALS: BP_SYST 109; BP_SYST 121; BP_DIAS 66; BP_DIAS 71; PULSE 76; RESP 18; RESP 20; TEMP 36.2; O2SAT 95
[2025-08-17 05:46] VITALS: BP 104/71; PULSE 80; RESP 20; TEMP 36.44736
[2025-08-17 08:00] VITALS: BP 109/78; PULSE 75; RESP 19; TEMP 35.1; O2SAT 100
[2025-08-17] MEDS: DOCUSATE SODIUM 100MG CAPSULE PO PRN (11:02)
[2025-08-17 12:00] VITALS: BP 110/72; PULSE 81; RESP 19; TEMP 35.7; O2SAT 100
[2025-08-17 16:00] VITALS: BP 112/76; PULSE 79; RESP 18; TEMP 35.7; O2SAT 100
[2025-08-17 20:00] VITALS: BP 117/80; PULSE 89; RESP 16; TEMP 36.2; O2SAT 100
[2025-08-17] MEDS ORDERED: GUAIFENESIN-DM 200MG-20MG/10ML UDC PO PRN (21:30)
[2025-08-18] VITALS (14 sets, daily range): BP systolic 99–134; BP diastolic 61–91; PULSE 80–89; RESP 16–18; TEMP 35.8–36.7; O2SAT 98–100
[2025-08-18 13:24] LABS: BG BASE EXCESS -2.3 mmol/L (-2.0-3.0); BG CARBOXYHEMOGLOBIN 1.6 % (0.5-1.5); BG DEOXYHEMOGLOBIN 2.0 % (0.0-5.0); BG FRACTION INSPIRED OXYGEN 28; BG HCO3 ACT 21.2 mmol/L (21.0-28.0); BG METHEMOGLOBIN 0.2 % (0.5-1.5); BG OXYGEN SATURATION 98.0 % (94.0-98.0); BG OXYHEMOGLOBIN 96.2 % (94.0-98.0); BG PCO2 32.9 mmHg (32.0-45.0); BG PH 7.428 (7.350-7.450); BG PO2 105.6 mmHg (83.0-108.0); BG SAMPLE SITE RIGHT RADIAL; BG TOTAL HEMOGLOBIN 12.9 g/dL (12.0-16.0); BG VENT MODE NASAL CANNULA
== END 2025-08-18 18:55 | DRG 280 ==
LOC: ER 09:46 → 5EST 12:31 → EDBEDREQTM 13:07 → EDBEDREQ 13:07 → 6WST 07-29 06:19 → 7EST 08-12 02:57
PROVIDERS: ADMIT Internal Medicine; ATTEND Internal Medicine
PROC: 5A09357 Assistance with Respiratory Ventilation, Less than 24 Consecutive Hours, Continuous Positive Airway Pressure (ICD-10-PCS; 2025-07-16)
PROC: 02HV33Z Insertion of Infusion Device into Superior Vena Cava, Percutaneous Approach (ICD-10-PCS; 2025-07-16)
PROC: B548ZZA Ultrasonography of Superior Vena Cava, Guidance (ICD-10-PCS; 2025-07-16)
PROC: 5A1D70Z Performance of Urinary Filtration, Intermittent, Less than 6 Hours Per Day (ICD-10-PCS; principal; 2025-07-17)
PROC: 5A09357 Assistance with Respiratory Ventilation, Less than 24 Consecutive Hours, Continuous Positive Airway Pressure (ICD-10-PCS; 2025-07-17)
PROC: 5A1D70Z Performance of Urinary Filtration, Intermittent, Less than 6 Hours Per Day (ICD-10-PCS; 2025-07-18)
PROC: 5A09357 Assistance with Respiratory Ventilation, Less than 24 Consecutive Hours, Continuous Positive Airway Pressure (ICD-10-PCS; 2025-07-18)
PROC: 5A1D70Z Performance of Urinary Filtration, Intermittent, Less than 6 Hours Per Day (ICD-10-PCS; 2025-07-19)
PROC: 5A09357 Assistance with Respiratory Ventilation, Less than 24 Consecutive Hours, Continuous Positive Airway Pressure (ICD-10-PCS; 2025-07-19)
PROC: 5A09357 Assistance with Respiratory Ventilation, Less than 24 Consecutive Hours, Continuous Positive Airway Pressure (ICD-10-PCS; 2025-07-20)
PROC: 5A1D70Z Performance of Urinary Filtration, Intermittent, Less than 6 Hours Per Day (ICD-10-PCS; 2025-07-21)
PROC: 5A09357 Assistance with Respiratory Ventilation, Less than 24 Consecutive Hours, Continuous Positive Airway Pressure (ICD-10-PCS; 2025-07-21)
PROC: 5A09357 Assistance with Respiratory Ventilation, Less than 24 Consecutive Hours, Continuous Positive Airway Pressure (ICD-10-PCS; 2025-07-22)
PROC: 5A1D70Z Performance of Urinary Filtration, Intermittent, Less than 6 Hours Per Day (ICD-10-PCS; 2025-07-23)
PROC: 5A1D70Z Performance of Urinary Filtration, Intermittent, Less than 6 Hours Per Day (ICD-10-PCS; 2025-07-24)
PROC: 5A09357 Assistance with Respiratory Ventilation, Less than 24 Consecutive Hours, Continuous Positive Airway Pressure (ICD-10-PCS; 2025-07-25)
PROC: 5A1D70Z Performance of Urinary Filtration, Intermittent, Less than 6 Hours Per Day (ICD-10-PCS; 2025-07-26)
PROC: 5A1D70Z Performance of Urinary Filtration, Intermittent, Less than 6 Hours Per Day (ICD-10-PCS; 2025-07-28)
PROC: 5A1D70Z Performance of Urinary Filtration, Intermittent, Less than 6 Hours Per Day (ICD-10-PCS; 2025-07-30)
PROC: 5A1D70Z Performance of Urinary Filtration, Intermittent, Less than 6 Hours Per Day (ICD-10-PCS; 2025-07-31)
PROC: 5A1D70Z Performance of Urinary Filtration, Intermittent, Less than 6 Hours Per Day (ICD-10-PCS; 2025-08-01)
PROC: 02HV33Z Insertion of Infusion Device into Superior Vena Cava, Percutaneous Approach (ICD-10-PCS; 2025-08-02)
PROC: 0JH63XZ Insertion of Tunneled Vascular Access Device into Chest Subcutaneous Tissue and Fascia, Percutaneous Approach (ICD-10-PCS; 2025-08-02)
PROC: B5181ZA Fluoroscopy of Superior Vena Cava using Low Osmolar Contrast, Guidance (ICD-10-PCS; 2025-08-02)
PROC: 02PY33Z Removal of Infusion Device from Great Vessel, Percutaneous Approach (ICD-10-PCS; 2025-08-02)
PROC: 5A1D70Z Performance of Urinary Filtration, Intermittent, Less than 6 Hours Per Day (ICD-10-PCS; 2025-08-03)
PROC: 5A1D70Z Performance of Urinary Filtration, Intermittent, Less than 6 Hours Per Day (ICD-10-PCS; 2025-08-04)
PROC: 5A1D70Z Performance of Urinary Filtration, Intermittent, Less than 6 Hours Per Day (ICD-10-PCS; 2025-08-05)
PROC: 5A1D70Z Performance of Urinary Filtration, Intermittent, Less than 6 Hours Per Day (ICD-10-PCS; 2025-08-06)
PROC: 5A1D70Z Performance of Urinary Filtration, Intermittent, Less than 6 Hours Per Day (ICD-10-PCS; 2025-08-08)
PROC: 5A1D70Z Performance of Urinary Filtration, Intermittent, Less than 6 Hours Per Day (ICD-10-PCS; 2025-08-09)
PROC: 5A1D70Z Performance of Urinary Filtration, Intermittent, Less than 6 Hours Per Day (ICD-10-PCS; 2025-08-11)
PROC: 5A1D70Z Performance of Urinary Filtration, Intermittent, Less than 6 Hours Per Day (ICD-10-PCS; 2025-08-13)
PROC: 5A1D70Z Performance of Urinary Filtration, Intermittent, Less than 6 Hours Per Day (ICD-10-PCS; 2025-08-16)
PROC: 5A1D70Z Performance of Urinary Filtration, Intermittent, Less than 6 Hours Per Day (ICD-10-PCS; 2025-08-18)
DX: T82.511A Breakdown (mechanical) of surgically created arteriovenous shunt, initial encounter (principal); I50.23 Acute on chronic systolic (congestive) heart failure; I21.A1 Myocardial infarction type 2; L89.153 Pressure ulcer of sacral region, stage 3; J96.21 Acute and chronic respiratory failure with hypoxia; N18.6 End stage renal disease; I13.2 Hypertensive heart and chronic kidney disease with heart failure and with stage 5 chronic kidney disease, or end stage renal disease; Z99.2 Dependence on renal dialysis; J44.89 Other specified chronic obstructive pulmonary disease; T82.510A Breakdown (mechanical) of surgically created arteriovenous fistula, initial encounter; E78.5 Hyperlipidemia, unspecified; K21.9 Gastro-esophageal reflux disease without esophagitis; F41.9 Anxiety disorder, unspecified; G47.33 Obstructive sleep apnea (adult) (pediatric); Y83.2 Surgical operation with anastomosis, bypass or graft as the cause of abnormal reaction of the patient, or of later complication, without mention of misadventure at the time of the procedure; Y92.89 Other specified places as the place of occurrence of the external cause; K59.00 Constipation, unspecified; Z79.899 Other long term (current) drug therapy; Z87.891 Personal history of nicotine dependence; Z53.20 Procedure and treatment not carried out because of patient's decision for unspecified reasons; Z99.81 Dependence on supplemental oxygen; Z88.0 Allergy status to penicillin; Z88.2 Allergy status to sulfonamides; I25.2 Old myocardial infarction
CPT/HCPCS: 36415; 36556; 36558; 36589; 36600; 71045; 76604; 77001; 80048; 80076; 80305; 82375; 82550; 82553; 82805; 82962; 83735; 83880; 84100; 84439; 84443; 84484; 85025; 85027; 86705; 86709; 87340; 90935; 93005; 94070; 94640; 94660; 94664; 97162; 97166; 97530; 97535; 98960; 99152; 99291; A4606; C1750; C1752; C1769; J0612; J1642; J1644; J1650; J1815; J1938; J2003; J2405; J2470; J2765; J2997; J3010; J3490; J7512; Q0163; G0500